=== PATIENT | male | born 1955 | race Caucasian/White ===

== ENCOUNTER → 2024-06-09 | Outpatient (BNVA) | payer MEDICARE, BC, SELFPAY | END | disposition home or self-care (01) | PROVIDERS: PCP Nurse Anesthetist, Certified Registered; Referring Provider Nurse Anesthetist, Certified Registered; Visit Provider Urology | DX: N40.1 Benign prostatic hyperplasia with lower urinary tract symptoms (principal); N13.8 Other obstructive and reflux uropathy; Z87.891 Personal history of nicotine dependence | CPT/HCPCS: 76872 ==

== ENCOUNTER → 2024-08-13 | Outpatient (CLI) | payer MEDICARE, BC, SELFPAY ==
--- NOTE | 2024-08-13 14:44 | XR_ITS ---
Examination: Abdomen AP single view Technique: AP portable supine abdomen, single view Exam date and time: August 13, 2024 1502 hours INDICATIONS: Diarrhea 3 months FINDINGS: Moderate air and stool throughout the colon No obstruction No free air No abnormal calcific densities Moderate narrowing hip joints IMPRESSION: Moderate air and stool throughout the colon
== END | disposition home or self-care (01) ==
LOC: CDIM 14:23
PROVIDERS: PCP Family Medicine; Referring Provider Specialist; Visit Provider Specialist
DX: K59.00 Constipation, unspecified (principal)
CPT/HCPCS: 74018

== ENCOUNTER → 2024-08-18 | Outpatient (BNVA) | payer MEDICARE, BC, SELFPAY | END | disposition home or self-care (01) | PROVIDERS: PCP Nurse Anesthetist, Certified Registered; Referring Provider Nurse Anesthetist, Certified Registered; Visit Provider Urology | DX: N40.1 Benign prostatic hyperplasia with lower urinary tract symptoms (principal); N39.41 Urge incontinence; N13.8 Other obstructive and reflux uropathy; K58.9 Irritable bowel syndrome, unspecified; Z85.46 Personal history of malignant neoplasm of prostate; E66.9 Obesity, unspecified; Z68.32 Body mass index [BMI] 32.0-32.9, adult; Z87.891 Personal history of nicotine dependence | CPT/HCPCS: 81003; 99212; G0463 ==

== ENCOUNTER → 2024-09-08 | Outpatient (BNVA) | payer MEDICARE, BC, SELFPAY | END | disposition home or self-care (01) | PROVIDERS: PCP Nurse Anesthetist, Certified Registered; Referring Provider Nurse Anesthetist, Certified Registered; Visit Provider Urology | DX: N35.812 Other bulbous urethral stricture, male (principal); N32.89 Other specified disorders of bladder; N40.1 Benign prostatic hyperplasia with lower urinary tract symptoms; N13.8 Other obstructive and reflux uropathy; Z87.891 Personal history of nicotine dependence | CPT/HCPCS: 52000; 81003; 96372; A4217; A4649; C1894; J1580; A9270 ==

== ENCOUNTER → 2024-11-16 | Outpatient (CLI) | payer MEDICARE, BC, SELFPAY ==
[2024-11-16 14:23] LABS: Basophils % (Auto) 0 % (0-2.5); Eosinophils # (Auto) 0.2 Thou/mm3 (0.0-0.5); Eosinophils % (Auto) 2 % (0-10); Hematocrit 46.7 % (41.0-53.0); Hemoglobin 16.3 g/dL (13.5-16.0); Immature Granulocytes % (Auto) 1 % (0-0); Immature Granulocytes Auto 0.05 Thou/mm3 (0.00-0.00); Lymphocytes # (Auto) 1.8 Thou/mm3 (1.0-4.8); Lymphocytes % (Auto) 20 % (10-50); Mean Corpuscular HGB Conc 34.9 g/dl (31.0-37.0); Mean Corpuscular Hemoglobin 34.8 pg (25.0-35.0); Mean Corpuscular Volume 100 fL (80-100); Monocytes # (Auto) 0.7 Thou/mm3 (0.0-0.8); Monocytes % (Auto) 8 % (0-12); Neutrophils # (Auto) 6.3 Thou/mm3 (1.8-7.7); Neutrophils % (Auto) 69 % (37-80); Nucleated Red Blood Cell % 0 /100 WBC (0); Platelet Count 230 Thou/mm3 (140-440); RDW Standard Deviation 47.3 fL (35.1-43.9); Red Blood Count 4.69 Miln/mm3 (4.50-5.90); White Blood Count 9.2 Thou/mm3 (3.8-10.6)
[2024-11-16 14:39] LABS: Prostate Specific Antigen 0.46 ng/mL (0-4.00)
[2024-11-16 15:55] LABS: Glucose Estimated Average 105 mg/dL (80-131); Hemoglobin A1C 5.3 % Hgb (4.8-6.0)
== END | disposition home or self-care (01) ==
PROVIDERS: PCP Internal Medicine; Referring Provider Internal Medicine; Visit Provider Internal Medicine
DX: R23.3 Spontaneous ecchymoses (principal); E78.5 Hyperlipidemia, unspecified; N40.1 Benign prostatic hyperplasia with lower urinary tract symptoms; Z79.899 Other long term (current) drug therapy; I48.91 Unspecified atrial fibrillation
CPT/HCPCS: 36415; 80053; 80061; 83036; 84153; 84443; 85025

== ENCOUNTER → 2024-11-20 | Outpatient (CLI) | payer MEDICARE, BC, SELFPAY ==
[2024-11-20 15:41] LABS: Alanine Aminotransferase 18 U/L (10-49); Albumin, Serum 4.6 gm/dL (3.4-4.8); Albumin/Globulin Ratio 1.9 (1.2-2.2); Alkaline Phosphatase 70 U/L (46-116); Anion Gap 5 (7-16); Aspartate Amino Transferase 16 U/L (0-34); BUN/Creatinine Ratio 11 Ratio (12-20); Blood Urea Nitrogen 12 mg/dL (9-23); Calcium 9.3 mg/dL (8.3-10.6); Calcium (Corrected) 9.3 mg/dL (8.5-10.1); Carbon Dioxide 27.3 mMol/L (20.0-31.0); Cardiac Risk Estimate 4.8 RATIO (4.0-6.7); Chloride 109 mMol/L (98-107); Cholesterol 182 mg/dL (132-200); Creatinine (Component) 1.1 mg/dL (0.6-1.3); Globulin 2.4 gm/dL (2.3-3.5); Glucose 97 mg/dL (74-106); HDL Cholesterol 38 mg/dL (40-60); LDL Cholesterol,Calculated 131 mg/dL (0-130); Osmolality,Calculated 280 (275-295); Potassium 4.1 mMol/L (3.4-5.1); Sodium 141 mMol/L (136-145); Thyroid Stimulating Hormone 1.64 uIU/mL (0.55-4.78); Triglycerides 64 mg/dL (30-150); eGFR > 60 See Note
== END | disposition home or self-care (01) ==
LOC: COPL 14:18
PROVIDERS: PCP Family Medicine; Referring Provider Internal Medicine; Visit Provider Internal Medicine
DX: R23.3 Spontaneous ecchymoses (principal); E78.5 Hyperlipidemia, unspecified; N40.1 Benign prostatic hyperplasia with lower urinary tract symptoms; I48.91 Unspecified atrial fibrillation; Z79.899 Other long term (current) drug therapy
CPT/HCPCS: 36415; 80053; 80061; 84443

== ENCOUNTER 2025-03-01 15:00 | Inpatient (IN) | payer MEDICARE, BC, SELFPAY ==
[2025-03-01] VITALS (8 sets, daily range): BP systolic 94–117; BP diastolic 62–85; PULSE 54–135; RESP 18–26; TEMP 36.8–38.8; O2SAT 95–98; BMI 29.8
--- NOTE | 2025-03-01 15:18 | EKG_ITS ---
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: : 1955 Requested By: Ana Hernandez Order Number: [id number] Reading MD: Ana Hernandez Measurements Intervals [place] Rate: 131 P: 90 VT: 168 QRS: 7 QRSD: 77 T: 78 QT: 374 QTc: 552 Interpretive Statements SINUS TACHYCARDIA WITH OCCASIONAL VENTRICULAR PREMATURE COMPLEXES LOW QRS VOLTAGE [QRS DEFLECTION < 0.5/1.0 mV IN LIMB/CHEST LEADS] MARKED ST ELEVATION, CONSIDER INFERIOR INJURY [MARKED ST ELEVATION W/O NORMALLY INFLECTED T-WAVE IN II/aVF] ACUTE [place] Compared to ECG 11/23/2022 09:50:53 Low QRS voltage now present ST (T wave) deviation now present Myocardial infarct finding now present Sinus rhythm no longer present /store/S0/[id number].pdf
--- NOTE | 2025-03-01 15:21 | XR_ITS ---
Examination: AP chest single view Technique one AP portable semiupright chest single view Date and time: March 01, 2025 at 1539 hours INDICATIONS: Sepsis alert today FINDINGS: Normal heart size. No pneumonia or pulmonary edema The osseous structures are intact IMPRESSION: No pneumonia or pulmonary edema
[2025-03-01] MEDS: SODIUM CHLORIDE 0.9% 1000 ML 2,328 ML 2328 ML IV (15:32)
[2025-03-01 15:41] LABS: Basophils # (Auto) 0.1 Thou/mm3 (0.0-0.2); Basophils % (Auto) 0 % (0-2.5); Eosinophils # (Auto) 0.0 Thou/mm3 (0.0-0.5); Eosinophils % (Auto) 0 % (0-10); Hematocrit 46.0 % (41.0-53.0); Hemoglobin 16.3 g/dL (13.5-16.0); Immature Granulocytes Auto 0.23 Thou/mm3 (0.00-0.00); Lymphocytes # (Auto) 0.4 Thou/mm3 (1.0-4.8); Lymphocytes % (Auto) 1 % (10-50); Mean Corpuscular HGB Conc 35.4 g/dl (31.0-37.0); Mean Corpuscular Hemoglobin 35.6 pg (25.0-35.0); Mean Corpuscular Volume 100 fL (80-100); Monocytes # (Auto) 1.8 Thou/mm3 (0.0-0.8); Monocytes % (Auto) 7 % (0-12); Neutrophils # (Auto) 22.7 Thou/mm3 (1.8-7.7); Neutrophils % (Auto) 90 % (37-80); Nucleated Red Blood Cell # 0.00 Thou/mm3 (0.00-0.00); Nucleated Red Blood Cell % 0 /100 WBC (0); Platelet Count 181 Thou/mm3 (140-440); RDW Standard Deviation 47.6 fL (35.1-43.9); Red Blood Count 4.58 Miln/mm3 (4.50-5.90); White Blood Count 25.1 Thou/mm3 (3.8-10.6)
[2025-03-01 15:42] LABS: Lactate (Lactic Acid) 4.8 mMol/L (0.4-2.0)
[2025-03-01 15:55] LABS: INR 1.1 (0.9-1.3); Partial Thromboplastin Time 30.8 Seconds (22.0-36.0); Prothrombin Time 12.3 Seconds (9.0-12.2)
[2025-03-01 15:58] LABS: B-Type Natriuretic Peptide 125 pg/mL (0-100)
[2025-03-01 16:06] LABS: Alanine Aminotransferase 17 U/L (10-49); Albumin, Serum 4.3 gm/dL (3.4-4.8); Albumin/Globulin Ratio 1.7 (1.2-2.2); Alkaline Phosphatase 69 U/L (46-116); Anion Gap 13 (7-16); Aspartate Amino Transferase 23 U/L (0-34); BUN/Creatinine Ratio 7 Ratio (12-20); Bilirubin,Total 1.4 mg/dL (0.3-1.2); Blood Urea Nitrogen 10 mg/dL (9-23); Calcium 9.5 mg/dL (8.3-10.6); Calcium (Corrected) 9.5 mg/dL (8.5-10.1); Carbon Dioxide 21.6 mMol/L (20.0-31.0); Chloride 104 mMol/L (98-107); Creatinine (Component) 1.4 mg/dL (0.6-1.3); Estimated Creatinine Clearance 60.9 mL/min (>60); Globulin 2.6 gm/dL (2.3-3.5); Glucose 145 mg/dL (74-106); Osmolality,Calculated 279 (275-295); Potassium 3.9 mMol/L (3.4-5.1); Procalcitonin 3.66 ng/ml (0.0-0.49); Sodium 139 mMol/L (136-145); Total Protein 6.9 gm/dL (5.7-8.2); eGFR 54 See Note
[2025-03-01 16:09] LABS: Troponin I 0.306 ng/mL (0.0-0.045)
[2025-03-01 16:31] LABS: Collection Type, Urine Voided
--- NOTE | 2025-03-01 16:37 | XR_ITS ---
Examination: CT brain head without contrast. 2-D sagittal coronal reconstructions Date and time of exam:February 28, 2025, 1854 hours Comparison July 05, 2023. INDICATIONS: Patient fell today with injury., Altered mental status CTDI: vol (mGy):53.3 DLP: (mGycm):1069 Technique: Multiple CT axial sections of the brain have been obtained, 5 mm slice thickness. Contrast has not been administered. 2-D sagittal, coronal reconstructions have been obtained Low dose protocols were performed. One or more of the following dose reduction techniques were used; automated exposure control, adjustment of the mA and/or KV according to patient size, use of iterative reconstruction technique. Findings: No significant ventricular enlargement. Intra-axial or extra-axial hemorrhage density is not seen. No mass effect or midline shift Basal cisterns are not remarkable. Fourth ventricle is midline. Cranial vault intact. Impression: Negative for acute hemorrhage, mass effect or midline shift
--- NOTE | 2025-03-01 16:38 | XR_ITS ---
Examination: CTA chest with intravenous contrast 2-D reconstructions 3-D reconstructions, vascular Date and time of exam: March 01, 2025, 1905 hours INDICATIONS: Patient fell today with fever and tachycardia syncope CTDI: vol (mGy) 17.45 DLP: (mGycm) 412 Technique: Multiple axial sections of the thorax have been obtained. 3 mm slice thickness, from below the hemidiaphragms to above the apices of the lungs. Mediastinal and lung density settings have been obtained. 2-D sagittal and coronal reconstructions. 3-D angiographic renderings, 3-D volume renderings, 3D post processing, vascular maximum intensity projections obtained. Contrast administered is 60 cc Isovue 300. Intravenous Low dose protocols were performed. One or more of the following dose reduction techniques were used; automated exposure control, adjustment of the mA and/or KV according to patient size, use of iterative reconstruction technique. Findings: Pulmonary artery segments are not enlarged, no pulmonary artery emboli No hemopericardium No pneumothorax pulmonary contusion or hemothorax No visualized liver or splenic lesion No pancreatic or adrenal mass Manubrium body of the sternum thoracic vertebral bodies intact Ribs appear intact No visualized liver or splenic lesion No gallstones No pancreatic mass IMPRESSION: No thoracic aortic aneurysm dilatation or dissection Negative for pulmonary artery emboli Negative for pulmonary artery hypertension No pneumothorax pneumonia or pulmonary edema
--- NOTE | 2025-03-01 16:39 | XR_ITS ---
Examination: CT abdomen with intravenous contrast CT pelvis with intravenous contrast 2-D coronal reconstructions 2-D sagittal reconstructions Date and time of exam:March 01, 2025, 1905 hours Comparison January 08, 2021 INDICATIONS: Patient fell today with injury to the abdomen, abdomen pain. CTDI: vol (mGy) 12.6 DLP: (mGycm) 811 Technique: Multiple axial sections of the abdomen and pelvis have been obtained. 64 slice high-resolution scanner used. 3 mm axial sections have been obtained, post intravenous injection 60 cc Isovue 300 2-D sagittal, coronal reconstructions obtained. Low dose protocols were performed. One or more of the following dose reduction techniques were used; automated exposure control, adjustment of the mA and/or KV according to patient size, use of iterative reconstruction technique. Findings: No liver splenic or renal laceration, no perinephric hematoma No gallstones No pancreatic or adrenal mass Abdominal aorta intact, no free blood in the abdomen Negative for pneumoperitoneum Small fat-containing umbilical hernia Urinary bladder wall thickening up to 6 mm No significant prostatomegaly No lumbar vertebral body compression fracture Advanced degenerative disc disease L2-L3. Bones of the pelvis including acetabular regions anterior rami and hips appear intact IMPRESSION: No abdominal parenchymal laceration Abdominal aorta intact, no free blood in the abdomen or pelvis Cystitis pattern Osseous structures intact
--- NOTE | 2025-03-01 16:39 | EDNOTE_ITS ---
ED Syncope RME/HPI General Chief Complaint: Arrhythmia/Palpitations Stated Complaint: AFIB Time Seen by Provider: 03/01/25 15:20 Arrival date/time: 03/01/25 15:00 Limitations: no limitations RME / HPI RME / HPI narrative: 69-year-old male who was brought in today by EMS after he had a fall in his bathroom at home. The fall was unwitnessed but his heard the fall, found him on the ground, and contacted 911. He was alert but confused when he was found. There is no witnessed seizure activity. EMS report no postictal state. Patient was tachycardic but normotensive on scene. There is question of possib le A-fib however he he was in sinus rhythm upon presentation here. There is no open wounds. Patient states he stood up, felt lightheaded and fell. Patient was found to be tachycardic and had a fever upon presentation. this triggered our sepsis alert. 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 He denies any runny nose, cough, chest pain, or shortness of breath. He has no skin changes. No abdominal pain, nausea, or vomiting. He has no dysuria. He does endorse a low backache. No skin changes. Related Data Home Medications ?Medication ?Instructions ?Recorded ?Confirmed pramipexole 0.5 mg tablet 1 mg PO QPM 11/23/22 5 tamsulosin 0.4 mg capsule 0.8 mg PO QHS 04/16/2408/18 solifenacin 5 mg tablet (Vesicare) 5 mg PO QDAY 08/18/24 Allergies Allergy/AdvReac Type Severity Reaction Status Date / Time No Known Allergies Allergy Verified 08/18/24 09:41 Review of Systems Review of Systems Systems Reviewed: All systems reviewed, normal except as documented ED Exam General Limitations: Present no limitations General appearance: Present alert and in no apparent distress Head Head exam: Present atraumatic Eye Eye exam: Present normal appearance, PERRL and EOMI ENT ENT exam: Present normal exam, normal oropharynx and mucous membranes moist Neck Neck exam: Present normal inspection, full ROM and trachea midline Chest Chest inspection: Present normal inspection and symmetric chest wall rise Respiratory Respiratory exam: Present normal lung sounds bilaterally Cardiovascular Cardiovascular exam: Present normal rhythm, tachycardia and normal heart sounds Abdominal Exam Abdominal exam: Present soft and normal bowel sounds; Absent distention, tend erness or guarding Extremities Exam Extremities exam: Present normal inspection and full ROM Back Exam Back exam: Present normal inspection and full ROM Neurological Exam Neurological exam: Present alert and oriented X3 Psychiatric Psychiatric exam: Present normal affect and normal mood Skin Skin exam: Present warm, dry, intact and normal color Course Quality Measures none Orders Category Date Time Status Bedside Blood Glucose NOW Care 03/01/25 15:21 Active COVID-19 Screening Questionnaire NOW Care 03/01/25 20:[address] Screening NOW Care 03/01/25 16:[address] Screening NOW Care 03/01/25 16:[address] Screening X1 Care 03/01/25 16:38 Active Professor Of Radiology Q4H START 00 Care 03/01/25 15:21 Active Decision to Admit X1 Care 03/01/25 20:01 Completed EKG (ED ONLY) *Do not use* NOW Care 03/01/25 15:18 Completed EKG (ED ONLY) *Do not use* NOW Care 03/01/25 16:24 Completed Insert IV NOW Care 03/01/25 15:21 Active Strict Intake and Output Routine Care 03/01/25 15:[address] abdomen pelvis w con Stat Exams 03/01/25 16:[address] angio chest Stat Exams 03/01/25 16:[address] head/brain wo con Stat Exams 03/01/25 16:37 Completed EKG (ED Only) Stat Exams 03/01/25 15:18 Draft EKG (ED Only) Stat Exams 03/01/25 16:24 Ordered XR chest 1V SEPSIS PROTOCOL Stat Exams 03/01/25 15:21 Completed BNP [B-Type Natriuretic Peptide] Stat Lab 03/01/25 15:28 Completed Blood Culture (Lab) Stat Lab 03/01/25 15:34 Received CBC Stat Lab 03/01/25 15:28 Completed CRP [C-Reactive Protein] Stat Lab 03/01/25 17:25 Completed Comprehensive Metabolic Panel Stat Lab 03/01/25 15:28 Completed Lactate (Lactic Acid) Stat Lab 03/01/25 15:28 Completed Lactic Acid, 3 HR Stat Lab 03/01/25 18:48 Completed Magnesium Stat Lab 03/01/25 20:18 Completed Partial Thromboplastin Time Stat Lab 03/01/25 15:28 Completed Phosphorous Stat Lab 03/01/25 20:18 Completed Procalcitonin Stat Lab 03/01/25 15:28 Completed Prothrombin Time with INR Stat Lab 03/01/25 15:28 Completed Sed Rate (ESR) Stat Lab 03/01/25 17:25 Completed Troponin I Stat Lab 03/01/25 15:28 Completed Troponin I Stat Lab 03/01/25 17:25 Completed Troponin I Stat Lab 03/01/25 20:18 Completed Urinalysis Stat Lab 03/01/25 16:23 Completed Urine Culture Stat Lab 03/01/25 16:23 Received Acetaminophen Tab [Tylenol ES Tab] Med 03/01/25 15:45 Discontinued 1,000 mg PO X1 ONE Sodium Chloride 0.9% 1000 ml [Ns] 2,328 ml Med 03/01/25 15:21 Discontinued IV 2,328 mls/hr cefTRIAXone [Rocephin] 2 gm Med 03/01/25 15:22 Discontinued SODIUM CHLORIDE 0.9% (Popper) [Ns 0.9% (P)] 50 ml IV X1 Vital Signs Vital signs: Vital Signs Temperature 100.6 F H 03/01/25 15:02 Pulse Rate 135 H 03/01/25 15:02 Respiratory Rate 20 03/01/25 15:02 Blood Pressure 117/76 03/01/25 15:02 Pulse Oximetry (%) 96 03/01/25 15:02 Oxygen Delivery Method Room Air 03/01/25 15:02 Syncope MDM Narrative MDM Narrative:: 69-year-old male who was brought in today by EMS after he had a fall in his bathroom at home. The fall was unwitnessed but his heard the fall, found him on the ground, and contacted 911. He was alert but confused when he was found. There is no witnessed seizure activity. There is no open wounds. Patient states he stood up, felt lightheaded and fell. Patient was found to be tachycardic and had a fever upon presentation. This triggered our sepsis alert. 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 He denies any runny nose, cough, chest pain, or shortness of breath. He has no skin changes. No abdominal pain, nausea, or vomiting. He has no dysuria. He does endorse a low backache. No skin changes. On exam, patient is diaphoretic, tachycardic and febrile. Upon arrival he triggered our sepsis alert and interventions were initiated. Workup reveals a leukocytosis of 20 5.1K, hemoglobin 16.3, hematocrit is 46. Metabolic panel reveals a creatinine of 1.4, glucose is 145, T. bili is 1.4. AST, ALT, and alk phos are unremarkable. Patient's CRP is 4.4. Procalcitonin is 3.66. BNP is 125 and troponin is elevated at 0.36 and is trended. Second troponin 0.354. A third troponin is pending. UA reveals 19 leukocytes. EKG revealed sinus tachycardia and was reviewed with Dr. Pride, the attending ER physician. CT of the head was obtained and is unremarkable. CT of the chest was negative for any pulmonary emboli or pneumonia. CT of the abdomen pelvis is unremarkable with exception of cystitis pattern. Patient was given fluid boluses here in addition of ceftriaxone. His vital signs have been normalized. Patient admitted from hospital mission, further therapies, and consideration for further workup for syncope. 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 How is presenting disease/condition affected by chronic disease/condition?: uneffected by Evaluation data The following diagnostics were reviewed and interpreted by me:: lab results (Leukocytosis with elevated inflammatory markers including troponin), radiology exam(s) (CT of the head, chest, abdomen, pelvis are unremarkable with the exception of cystitis pattern) and EKG tracing(s) (Sinus tachycardia with nonspecific ST changes, no dynamic T waves.) Lab and/or radiology exams considered but not ordered:: n/a Interpretation Summary: Sepsis, leukocytosis, UTI, elevated troponin Medications / Prescriptions Medications or Prescriptions considered but not ordered:: n/a Medication administrations:: Medication Administration History Acetaminophen (Acetaminophen 325 Mg Tablet) 650 mg PO Q6H PRN PRN Reason: PAIN SCALE 1-3 (mild Stop: 03/31/25 20:32 Heparin Sodium (Porcine) (Heparin Sod Inj 5000 Unit/Ml Vial) 5,000 unit SC Q12HR CHANTEL Stop: 03/15/25 20:59 Last Admin: 03/01/25 22:23 Dose: 5,000 unit Documented By: CCT Co-signed By: CAM Ceftriaxone Sodium/Dextrose (Rocephin/D5w 1gm Iv Premix) 1 gm in 50 mls @ 100 mls/hr IV QDAY [facility] Stop: 03/09/25 08:59 Ondansetron HCl (Ondansetron Inj 2 Mg/Ml Inj 2 Ml) 4 mg IVP Q6H PRN; Protocol PRN Reason: NAUSEA OR VOMITING Stop: 03/31/25 20:32 Sennosides (Senna Tablet) 1 tab PO QDAY PRN; Protocol PRN Reason: constipation Stop: 03/31/25 20:32 Discontinued Medications Acetaminophen (Acetaminophen 500 Mg Tablet) 1,000 mg PO X1 ONE Stop: 03/01/25 15:46 Last Admin: 03/01/25 18:06 Dose: 1,000 mg Documented By: LIANNE Sodium Chloride (Ns) 2,328 mls @ 2,328 mls/hr 30 ml/kg infuse over 60 min (2328 ml) IV .Q1H ONE Stop: 03/01/25 16:20 Last Infusion: 03/01/25 16:35 Dose: Infused Documented By: Admin: 03/01/25 15:32 Dose: 2,328 mls/hr Documented By: ADIN Ceftriaxone Sodium 2 gm/ (Sodium Chloride) 50 mls @ 100 mls/hr IV X1 ONE Stop: 03/01/25 15:51 Last Infusion: 03/01/25 18:45 Dose: Infused Documented By: Admin: 03/01/25 18:08 Dose: 100 mls/hr Documented By: LIANNE See above Consultations Consultation(s) initiated? (list below): No Diagnosis Syncope Differential Diagnosis: syncope due to orthostatic hypotension, vasovagal syncope and pulmonary embolism Most likely diagnosis given after review of the tests above:: She has sepsis, UTI. Admission Indicated Admission indicated?: indicated Admission Request Was there a request for admission?: Yes Admission Attestation Admission request attestation: Discussed case with [] from Hospitalist service regarding admission. Discussed patients ED course, exam findings, labs, and radiology results. The Hospitalist [agrees,declines] to accept the patient for admission. Disposition Plan Disposition Plan: Admit Critical Care Time Critical Care Time Critical Care Time: Yes Total Critical Care Time (min.): 55 Attestation: The high probability of sudden, clinically significant deterioration in the patient's condition required the highest level of my preparedness to intervene urgently. The services I provided to this patient were to treat and/or prevent clinically significant deterioration. Services included the following: chart data review, reviewing nursing notes and/or old charts, documentation time, hr consultant collaboration regarding findings and treatment options, medication orders and management, direct patient care, vital sign assessments and ordering, interpreting and reviewing diagnostic studies and lab tests. Aggregate critical care time includes only time during which I was engaged in work directly related to the patient's care, as described above, whether at bedside or elsewhere in the Emergency Department. It did not include time spent performing other reported procedures or the services of residents, students, nurses or physician assistants. Discharge Plan Plan Patient Disposition: Admit Acute Care w/in Hospital Patient condition on transfer: Stable Problem List Clinical Impression: Sepsis, Acute UTI, Syncope, Elevated troponin
[2025-03-01 17:51] LABS: Bilirubin,Urine Negative (Negative); Blood,Urine 1+ (Negative); Clarity,Urine Clear (Clear/Hazy); Color,Urine Lt-Yellow (Lt Yel-Yel); Glucose, Urine Negative (Negative); Ketones,Urine Negative (Negative); Leukocyte Esterase,Urine Positive (Negative); Nitrite,Urine Negative (Negative); PH,Urine 6.0 (5.0-7.0); Protein,Urine Negative (Neg - Trace); RBC,Urine 2 /hpf (0-3); Specific Gravity,Urine 1.007 (1.001-1.035); Squamous Epithelial Cell,Urine < 1 /hpf (0-5); Urobilinogen,Urine Negative mg/dL (0.0-1.0); WBC,Urine 19 /hpf (0-5)
[2025-03-01 18:02] LABS: C-Reactive Protein 4.4 mg/dL (0.0-0.9)
[2025-03-01 18:03] LABS: Troponin I 0.354 ng/mL (0.0-0.045)
[2025-03-01] MEDS: ACETAMINOPHEN 500 MG TABLET 1000 MG PO (18:06)
[2025-03-01] MEDS: cefTRIAXone 2 GM in SODIUM CHLORIDE 0.9% (Popper) 50 ML IV (18:08)
[2025-03-01 18:17] LABS: Sed Rate (ESR) 8 mm/hr (0-20)
[2025-03-01 18:38] LABS: Reflex Lactate? Y
[2025-03-01 19:08] LABS: Lactic Acid, 3 HR 2.0 mMol/L (0.4-2.0)
--- NOTE | 2025-03-01 20:36 | ECHO_ITS ---
Transthoracic Echo Report Ht (in): 72 Wt (lb): 220 Exam Location: Echo Lab Status: Emergency Boot Maker: Mere Tanner Indications: Procedure Performed: BP: 128 / 91 HR: 96 Technical Quality: Technically difficult study MEASUREMENTS (Male / Female) Normal Values 2D ECHO LV Diastolic Diameter PLAX 4.5 cm 4.2 - 5.9 / 3.9 - 5.3 cm LV Systolic Diameter PLAX 2.6 cm IVS Diastolic Thickness 0.9 cm 0.6 - 1.0 / 0.6 - 0.9 cm LVPW Diastolic Thickness 0.8 cm 0.6 - 1.0 / 0.6 - 0.9 cm LV Relative Wall Thickness 0.4 LVOT Diameter 2.0 cm Aortic Root Diameter 3.0 cm LA Systolic Diameter LX 2.5 cm 3.0 - 4.0 / 2.7 - 3.8 cm LV Ejection Fraction MOD BP 45.4 % >= 55 % LV Cardiac Index MOD BP 2068.5 cm?/min?m? LV Ejection Fraction MOD 4C 46.6 % LV Cardiac Index MOD 4C 2241.6 cm?/min?m? LV Ejection Fraction 4C AL 46.8 % LV Cardiac Index 4C AL 2354.8 cm?/min?m? LV Ejection Fraction MOD 2C 47.8 % LV Cardiac Index MOD 2C 2039.0 cm?/min?m? LV Ejection Fraction 2C AL 49.3 % LV Cardiac Index 2C AL 2152.4 cm?/min?m? LA Volume Index 19.2 cm?/m? 16 - 28 cm?/m? M-MODE Aortic Root Diameter MM 2.5 cm LA Systolic Diameter MM 2.6 cm LA Ao Ratio MM 1.0 AV Cusp Separation MM 2.0 cm DOPPLER AV Peak Velocity 90.4 cm/s AV Peak Gradient 3.3 mmHg AV Mean Gradient 2.0 mmHg AV Velocity Time Integral 19.9 cm LVOT Peak Velocity 75.4 cm/s LVOT Peak Gradient 2.3 mmHg LVOT Velocity Time Integral 16.7 cm LVOT Cardiac Index 2214.8 cm?/min?m? AV Area Cont Eq vti 2.6 cm? AV Area Cont Eq pk 2.6 cm? MV Area PHT 5.5 cm? Mitral E Point Velocity 39.3 cm/s Mitral A Point Velocity 59.2 cm/s Mitral E to A Ratio 0.7 LV E' Lateral Velocity 8.3 cm/s Mitral E to LV E' Lateral Ratio 4.8 LV E' Septal Velocity 9.4 cm/s Mitral E to LV E' Septal Ratio 4.2 PV Peak Velocity 89.6 cm/s PV Peak Gradient 3.2 mmHg FINDINGS Left Ventricle Normal left ventricular size, wall thickness, systolic function with no obvious regional wall motion abnormalities. The ejection fraction is visually estimated at 55-60 %. There is grade I diastolic dysfunction of the left ventricle (impaired relaxation pattern). Right Ventricle The right ventricular size is moderately increased with normal systolic function. Left Atrium The left atrium is normal by two-dimensional, color flow and Doppler imaging with no structural abnormalities, no thrombus formation present. Right Atrium The right atrium is normal by two-dimensional imaging, color flow and Doppler imaging with no structural abnormalities, no thrombus formation present. Atrial Septum The interatrial septum appears normal with no evidence of a shunt. Aorta The aorta is normal by two-dimensional, color flow and Doppler interrogation. Mitral Valve The mitral valve is normal by two-dimensional, color flow and Doppler interrogation. Trace mitral regurgitation. Aortic Valve The aortic valve is trileaflet and normal by two-dimensional, color flow and Doppler interrogation. There is no significant aortic valve regurgitation. Tricuspid Valve The tricuspid valve is normal by two-dimensional, color flow and Doppler interrogation. There is no significant tricuspid valve regurgitation. Pulmonic Valve The pulmonic valve is not well visualized. There is no significant pulmonic valve regurgitation. Vessels Inferior vena cava not well visualized. Pericardium The pericardium is normal by two-dimensional imaging. There is no significant pericardial effusion. CONCLUSIONS Indication: Hx of heart arrhythmia, no stent Normal LV size and wall thickness. Estimated EF at 55-60 %. Grade I diastolic dysfunction. The RV size is moderately increased with normal systolic function. Trace MR. IVC not well visualized. Zana García (Electronically Signed) Final Date: 03 March 2025 00:29
[2025-03-01 21:09] LABS: Magnesium 1.5 mg/dL (1.6-2.6); Phosphorous 1.9 mg/dL (2.4-5.1)
--- NOTE | 2025-03-01 21:11 | ESHP_ITS ---
<Statement entered by Zack Mcclure MD - 03/03/25 07:37> I have discussed and was present for the essential components of the history, physical examination, diagnosis, and treatment plan with the resident. I agree with the patient's care as documented by the resident and amended herein by me. Zack Mcclure MD FACP. Documentation for date of: 03/01/25 HPI History of Present Illness History of present illness: Cole Pelaez is a 69-year-old male with a PMH of GBS, unspecified cardiac arrhythmia, and BPH who presents today with syncopal episode and possible ground-level fall. According to patient, his heard him fall down near the entrance of home bathroom at around 11 to 11:30 AM this morning. He recalls feeling a sense of general malaise and weakness as well as possible cold sweats prior to the syncopal episode but did not remember the actual episode itself. Patient does not know how long the episode lasted. He endorses having a similar prior episode before in the setting of stress. According to ED note, he also seems to endorses lightheadedness that occurs when he stands up. He denies any recent travel history or sick contacts. He denies having any current pain. In the ED, vitals showed: BP 117/76 HR 135 RR 20 Temp 100.6 SpO2 96% on room air ED Course: CBC showed leukocytosis (WBC 25.1) w/ neutrophilic predominance but was otherwise unremarkable. Coagulation panel WNL. CMP showed elevated creatinine 1.4 (baseline 1.1), normal BUN, reduced eGFR 54 (baseline >60), critically high lactic acid 4.8 (downtrended to 2.0), low magnesium and phosphorus, critically high troponin (0.306->0.354->0.442), high CRP, high BNP, and high procalcitonin. UA showed some pyuria, slight hematuria, and positive LE. Imaging: EKG showed sinus tachycardia w/ marked ST elevation in the distribution of inferior NC, occasional PVCs and a prolonged QTc 552. CXR, head CT, and chest CTA were all unremarkable. CTAP was notable for a cystitis pattern but was otherwise negative. In the ED, patient was given 2 L NS, tylenol, and ceftriaxone. Patient was admitted for the work-up and management of syncopal episode, sepsis r/o 2/2 possible UTI, DEANA, and elevated troponin. Review of Systems Review of Systems Narrative Review of Systems: General: Endorses low grade fever and general malaise. Endorses cold sweats antecedent to syncopal episode. Denies chills HEENT: Denies congestion or sore throat Heart: Denies chest pain or palpitations Lungs: Denies shortness of breath or cough Abdomen: Denies abdominal pain, nausea, vomiting, constipation, diarrhea, or blood in stool Genitourinary: Endorses urinary urgency. Denies frequency, dysuria, or hematuria Neurology: Endorses generalized weakness. Endorses amnesia of syncopal event. Endorses orthostatic hypotension symptoms. Denies any changes in vision or difficulty speaking Review of systems otherwise negative except what is mentioned above. Past Medical History Past Medical History NEUROLOGIC: Positive Neurological Disorders (RESTLESS LEG SYNDROME) and Guillain-[place] Syndrome (AT AGE 18); Negative Seizures CARDIAC: Negative Cardiac Disorders or Congestive Heart Failure RESPIRATORY: Negative Chronic Obstructive Pulmonary Disease (COPD) or Asthma GASTROINTESTINAL: Positive Gastrointestinal Disorders (RECTAL BLEEDING) GENITOURINARY: Positive Genitourinary Disorders (OVERACTIVE BLADDER) and Benign Prostatic Hyperplasia; Negative Renal Disease REPRODUCTIVE: Positive Genital Herpes (years ago) MUSCULOSKELETAL: Positive Musculoskeletal Disorders and Fractures ENT: Positive Cataracts (carlitos) ENDOCRINE: Negative Endocrine Disorders, Diabetes Mellitus Type 1 or Diabetes Mellitus Type 2 HEMATOLOGIC: Negative Blood Disorders or Sickle Cell Disease OTHER HISTORY: Positive Hospitalization (guillian barre syndrome), Autoimmune Disease (restless leg syndrome, guillian barre syndrome), Chicken Pox, Measles and Mumps; Negative Blood Transfusions, Blood Transfusion Reaction, Anesthesia Reactions, MRSA or Cancer Family History FAMILY HISTORY: Positive Family Cancer and Family Surgery; Negative Family Psychiatric Problems, Family Respiratory Disorders, Family Cardiac Disorders, Family Gastrointestinal Problems or Family Anesthesia Reaction Social History SMOKING STATUS: Never smoker ALCOHOL LAST INTAKE: Days (ago) Past Medical History Comments PMH COMMENT: PMH: GBS, unspecified cardiac arrhythmia, BPH PSH: hernia repair (age 2), muscle biopsy (age 10-11 at [facility]), appendectomy Medications: FloMax Allergies: none FH: prostate cancer in dad SH: lives in a house in [place] with , drank an average of 1-2 shots of alcohol (usually whiskey) from age 18-current, smoked an average of 4 cigarettes per day from age [age], current marijuana user and started at age 18 Exam Vital Signs Temp Pulse Resp BP Pulse Ox O2 Del Method 98.4 F 76 19 111/81 97 Room Air 03/01/25 20:06 03/01/25 20:06 03/01/25 20:06 03/01/25 20:06 03/01/25 20:06 03/01/25 20:06 Narrative Exam Physical Exam: General: Alert, no acute distress. Skin: Warm, dry, intact, no obvious rash. Head: Normocephalic, atraumatic. Eye: Normal conjunctiva, PERRL. Throat: Oral mucosa moist. No obvious lesions in oropharynx. Cardiovascular: Tachycardic rate and normal rhythm, no murmur, +S1/S2. Respiratory: Tachypneic. Lungs are clear to auscultation, no crackles, no wheezing. Gastrointestinal: Soft, nontender, non-distended. No guarding or rebound tenderness. Extremities: No edema, no cyanosis, no clubbing. 2+ radial pulse bilaterally, 2+ posterior tibial pulse bilaterally. Neuro: No focal deficits observed. Conversant, moving all extremities. No overt cerebellar signs/incoordination. Psychiatric: Cooperative, appropriate affect. Results: Labs 03/02/25 04:49 03/01/25 15:28 Labs: Short CBC 03/01/25 Range/Units 15: WBC 25.1 H (3.8-10.6) Thou/mm3 Hgb 16.3 H (13.5-16.0) g/dL Hct 46.0 (41.0-53.0) % Plt Count 181 (140-440) Thou/mm3 BMP 03/01/25 15:28 Sodium 139 Potassium 3.9 Chloride 104 Carbon Dioxide 21.6 BUN 10 Creatinine 1.4 H Glucose 145 H Calcium 9.5 Cardiac Enzymes 03/01/25 03/01/25 Range/Units 15: 17: Troponin I 0.306 H* 0.354 H* (0.0-0.045) ng/mL Liver Function 03/01/25 Range/Units 15:28 Total Bilirubin 1.4 H (0.3-1.2) mg/dL AST 23 (0-34) U/L ALT 17 (10-49) U/L Alkaline Phosphatase 69 (46-116) U/L Albumin 4.3 (3.4-4.8) gm/dL Urine 03/01/25 Range/Units 16:23 Urine Color Lt-Yellow (Lt Yel-Yel) Urine Clarity Clear (Clear/Hazy) Urine pH 6.0 (5.0-7.0) Ur Specific [place] 1.007 (1.001-1.035) Urine Protein Negative (Neg - Trace) Urine Glucose (UA) Negative (Negative) Quality Measures Quality Measures VTE prophylaxis (heparin) Advance care planning discussed with:: patient Medications Home Medications and Allergies Home Medications ?Medication ?Instructions ?Recorded ?Confirmed ?Type pramipexole 0.5 mg tablet 1 mg PO QPM 11/23/22 5 History tamsulosin 0.4 mg capsule 0.4 mg PO BID 04/16/2403/02 History solifenacin 5 mg tablet (Vesicare) 5 mg PO QDAY 03/02/25 History dicyclomine 10 mg capsule 10 mg PO BID 03/02/25 History Allergies Allergy/AdvReac Type Severity Reaction Status Date / Time No Known Allergies Allergy Verified 08/18/24 09:41 Visit Medications Acetaminophen (Acetaminophen 325 Mg Tablet) 650 mg PO Q6H PRN PRN Reason: PAIN SCALE 1-3 (mild Stop: 03/31/25 20:32 Heparin Sodium (Porcine) (Heparin Sod Inj 5000 Unit/Ml Vial) 5,000 unit SC Q12HR CHANTEL Stop: 03/15/25 20:59 Ceftriaxone Sodium/Dextrose (Rocephin/D5w 1gm Iv Premix) 1 gm in 50 mls @ 100 mls/hr IV QDAY CHANTEL Stop: 03/09/25 08:59 Ondansetron HCl (Ondansetron Inj 2 Mg/Ml Inj 2 Ml) 4 mg IVP Q6H PRN; Protocol PRN Reason: NAUSEA OR VOMITING Stop: 03/31/25 20:32 Sennosides (Senna Tablet) 1 tab PO QDAY PRN; Protocol PRN Reason: constipation Stop: 03/31/25 20:32 Discontinued Medications Acetaminophen (Acetaminophen 500 Mg Tablet) 1,000 mg PO X1 ONE Stop: 03/01/25 15:46 Last Admin: 03/01/25 18:06 Dose: 1,000 mg Sodium Chloride (Ns) 2,328 mls @ 2,328 mls/hr 30 ml/kg infuse over 60 min (2328 ml) IV .Q1H ONE Stop: 03/01/25 16:20 Last Infusion: 03/01/25 16:35 Dose: Infused Ceftriaxone Sodium 2 gm/ (Sodium Chloride) 50 mls @ 100 mls/hr IV X1 ONE Stop: 03/01/25 15:51 Last Infusion: 03/01/25 18:45 Dose: Infused Assessment & Plan Assessment Cole Pelaez is a 69-year-old male with a PMH of GBS and BPH who presents today with syncopal episode and possible ground-level fall. Patient was admitted for the work-up and management of syncopal episode, sepsis r/o 2/2 unknown source of infection, DEANA, and elevated troponin. #Syncope #Hx of unspecified cardiac arrhythmia #Cardiogenic vs. reflex vs. orthostatic etiology Initial presentation: syncopal episode w/ preceding cold sweats but w/o post- ictal state or focal neurological deficits in the setting of critically elevated troponins (initially 0.306 @ 15:28, 03/01/25, uptrending), lactic acidosis (initially 4.8, now resolved), tachycardia, low-grade fever, leukocytosis, hypophosphatemia and hypomagnesemia Has had 1 prior episode also w/ antecedent cold sweats that occurred in a setting where he felt stressed Current thought is that syncopal episode is most likely 2/2 orthostatic hypotension (patient endorsed lightheadedness upon standing up) that has been brought about by acute illness and septic picture Due to patient's self-reported history of unspecified cardiac arrhythmia, abnormal EKG w/ apparent ST elevation, elevated troponin (latest 0.442 @ 20:18, 03/01/25), and prolonged QTc (552), there is concern for cardiogenic syncope which warrants cardiovascular workup Differential Dx: vasovagal syncope (diaphoretic prodrome present) Patient was not a robust historian of exact details surrounding syncopal episode, may warrant collection of collateral information from witness () Diagnostic Inquiry -EKG -Echocardiogram -environmental monitoring technician q4HR -Orthostatic vitals Treatment Plan -Neuro check q4HR #Sepsis r/o #Leukocytosis Patient meets SIRS criteria (3/4) by the following: Temperature above 100.4 or below 98.6 (100.6), HR>90 (135), WBC above 12 or below 4 (25.1) + possible but unlikely source of infection (possible UTI but not convincing nidus) w/ end organ damage (DEANA, altered mentation/syncope) Evidence for source of infection is finding of high WBC 19/hpf and positive LE on UA as well as urinary bladder wall thickening up to 6 mm on CTAP (suggestive of cystitis), but unlikely to be the true source of sepsis qSOFA rating predicting high-risk mortality if 2 or more of the following criteria met: SBP 100 or less, RR 22 or more, GCS less than 15 (current score: 0) In the context of fluid resuscitation, patient is s/p 2.3 L of IV NS fluid Diagnostic Inquiry -Monitor CBC, CMP -BCx, UCx Treatment Plan -IV cefepime -IV vancomycin #DEANA, likely prerenal despite BUN/creatinine ratio 7 #likely 2/2 volume depletion from sepsis Creatinine 1.4 (baseline: 1.1), eGFR 54 (baseline: >60) Current DEANA etiology is suspected to be prerenal azotemia In the context of fluid resuscitation, patient is s/p 2.3 L of IV NS fluid Diagnostic Inquiry -Strict I's & O's Treatment Plan -IV fluids -Monitor renal panel #Elevated troponins #Demand ischemia vs. acute NC (likely inferior) Patient's lack of acute signs of chest pain or shortness of breath make demand ischemia a more likely underlying cause of the elevated troponins than acute NC (even though EKG did show ST elevations) The demand ischemia itself could likely be 2/2 patient's current infection and possible sepsis-related tachycardia Diagnostic Inquiry -EKG -Echocardiogram -environmental monitoring technician q4HR -Consider cardio consult Treatment Plan -Trending troponin #Lactic acidosis (resolved) Initial lactic acid of 4.8 that downtrended to 2.0 Thought to have been 2/2 sepsis, UTI, and DEANA #Chronic medical problems #Guillain-Chapin syndrome #Alcohol use disorder Patient has drank an average of 1-2 shots/day of whiskey for 51 years No overt signs of alcohol withdrawal Treatment Plan -On [facility] protocol Hospital Management: Disposition: undergoing work-up and management of syncopal episode, sepsis r/o 2/2 possible UTI, DEANA, and elevated troponin Diet: cardiac GI Prophylaxis: none Bowel Prophylaxis: senna DVT Prophylaxis: heparin CODE STATUS: Full Code I have examined the patient and conferred with my attending, Dr. Mcclure , and my senior resident, Dr. Wei, regarding them. Tramaine Garcia, DO PGY-1 Internal Medicine
[2025-03-01 21:13] LABS: Troponin I 0.442 ng/mL (0.0-0.045)
[2025-03-01] MEDS: HEPARIN SOD INJ 5000 UNIT/ML VIAL SC (22:23)
--- NOTE | 2025-03-01 22:57 | PC.NURSE ---
Report given [facility]
--- NOTE | 2025-03-01 23:33 | PC.NURSE ---
Received patient from ER via gurney,alert and oriented x3 and with generalized slight weakness.Bed locked in lowest position.Bedside table and call light within reach.Instructed to call when needed assistance.
[2025-03-02] VITALS (8 sets, daily range): BP systolic 96–132; BP diastolic 69–99; PULSE 87–105; RESP 18–23; TEMP 36.2–36.9; O2SAT 96–98
[2025-03-02] MEDS: Magnesium Sulfate 4 GM Ivpb 4 GM/50 ML BAG IV (04:40)
[2025-03-02 05:33] LABS: Basophils # (Auto) 0.0 Thou/mm3 (0.0-0.2); Basophils % (Auto) 0 % (0-2.5); Eosinophils # (Auto) 0.0 Thou/mm3 (0.0-0.5); Eosinophils % (Auto) 0 % (0-10); Hematocrit 44.9 % (41.0-53.0); Hemoglobin 15.8 g/dL (13.5-16.0); Immature Granulocytes Auto 0.09 Thou/mm3 (0.00-0.00); Lymphocytes # (Auto) 0.9 Thou/mm3 (1.0-4.8); Lymphocytes % (Auto) 5 % (10-50); Mean Corpuscular HGB Conc 35.2 g/dl (31.0-37.0); Mean Corpuscular Hemoglobin 35.5 pg (25.0-35.0); Mean Corpuscular Volume 101 fL (80-100); Monocytes # (Auto) 1.3 Thou/mm3 (0.0-0.8); Monocytes % (Auto) 7 % (0-12); Neutrophils # (Auto) 15.6 Thou/mm3 (1.8-7.7); Neutrophils % (Auto) 87 % (37-80); Nucleated Red Blood Cell # 0.00 Thou/mm3 (0.00-0.00); Nucleated Red Blood Cell % 0 /100 WBC (0); Platelet Count 167 Thou/mm3 (140-440); RDW Standard Deviation 47.9 fL (35.1-43.9); Red Blood Count 4.45 Miln/mm3 (4.50-5.90); White Blood Count 17.9 Thou/mm3 (3.8-10.6)
[2025-03-02 06:12] LABS: Alanine Aminotransferase 30 U/L (10-49); Albumin, Serum 4.1 gm/dL (3.4-4.8); Albumin/Globulin Ratio 1.6 (1.2-2.2); Alkaline Phosphatase 63 U/L (46-116); Anion Gap 10 (7-16); Aspartate Amino Transferase 95 U/L (0-34); BUN/Creatinine Ratio 11 Ratio (12-20); Bilirubin,Total 1.0 mg/dL (0.3-1.2); Blood Urea Nitrogen 11 mg/dL (9-23); Calcium 9.1 mg/dL (8.3-10.6); Calcium (Corrected) 9.1 mg/dL (8.5-10.1); Carbon Dioxide 24.8 mMol/L (20.0-31.0); Chloride 106 mMol/L (98-107); Creatinine (Component) 1.0 mg/dL (0.6-1.3); Estimated Creatinine Clearance 86.2 mL/min (>60); Globulin 2.5 gm/dL (2.3-3.5); Glucose 114 mg/dL (74-106); Osmolality,Calculated 281 (275-295); Potassium 4.4 mMol/L (3.4-5.1); Sodium 141 mMol/L (136-145); Total Protein 6.6 gm/dL (5.7-8.2); eGFR > 60 See Note
[2025-03-02] MEDS: NAPH,KPH MBDB 1 PACKET (1.5 GM) PO (06:13)
[2025-03-02 06:21] LABS: Troponin I 0.409 ng/mL (0.0-0.045)
[2025-03-02] MEDS: ONDANSETRON INJ 2 MG/ML INJ 2 ML 4 MG IVP (08:11)
[2025-03-02] MEDS: cefTRIAXone/D5w 1gm IV premix 1 GM/50 ML BAG IV (08:47)
[2025-03-02] MEDS: HEPARIN SOD INJ 5000 UNIT/ML VIAL SC ×2 (08:48→20:26)
--- NOTE | 2025-03-02 10:13 | ESPR_ITS ---
<Statement entered by Mckayla Ford MD - 03/02/25 15:46> I have reviewed the note and agree with the resident's assessment & plan with exceptions as below. I have personally reviewed labs, imaging, home meds/prior records, examined the patient, formulated and discussed management plan with the IM team. Pt examined at bedside today. Pt reports that he has had episodes of syncope in the past. He has seen Dr. Ricketts before in the past but has not done so in several years. He said that he has had a normal cardiac cath before. He does not know if he has orthostatic hypotension but he says that he has noticed feeling weak when getting up quickly at times. Will follow up with orthostatic vitals, echocardiogram and will consider consult to cardiology. Working DDx for syncope likely related to vasovagal and orthostatic hypotension at this time. Repeat hematology and chemistry in AM. Mckayla Ford, PGY-2 Internal Medicine Documentation for date of: 03/02/25 Subjective Subjective Interval history: Patient seen at bedside. No acute overnight events. The patient states has a history of recurrent syncopal episodes, for which he previously saw Dr. Ricketts several years ago. He reports a normal cardiac catheterization in the past. While he is unsure if he has orthostatic hypotension, he describes subjective weakness when changing positions rapidly, particularly upon standing up. Exam Vital Signs Temp Pulse Resp BP Pulse Ox O2 Del Method 97.4 F 97 20 119/78 97 Room Air 03/02/25 07:52 03/02/25 07:52 03/02/25 07:52 03/02/25 07:52 03/02/25 07:52 03/02/25 07:52 Narrative Exam General: Alert, no acute distress. Skin: Warm, dry, intact, no obvious rash. Head: Normocephalic, atraumatic. Eye: Normal conjunctiva, PERRL. Throat: Oral mucosa moist. No obvious lesions in oropharynx. Cardiovascular: S1+S2. RRR. no murmur. Respiratory: Tachypneic. Lungs are clear to auscultation, no crackles, no wheezing. Gastrointestinal: Soft, nontender, distendetion from obesity. No guarding or rebound tenderness. Extremities: No edema, no cyanosis, no clubbing. 2+ radial pulse bilaterally, 2+ posterior tibial pulse bilaterally. Neuro: No focal deficits observed. Conversant, moving all extremities. No overt cerebellar signs/incoordination. Psychiatric: Cooperative, appropriate affect. Objective Labs 03/03/25 04:25 03/03/25 04:25 Labs: Laboratory Results - last 24 hr 03/01/25 03/01/25 03/01/25 15:28 16:23 17:25 WBC 25.1 H RBC 4.58 Hgb 16.3 H Hct 46.0 MCV 100 MCH 35.6 H MCHC 35.4 RDW Std Deviation 47.6 H Plt Count 181 Neut % (Auto) 90 H Lymph % (Auto) 1 L [place] % (Auto) 7 Eos % (Auto) 0 Baso % (Auto) 0 Neut # (Auto) 22.7 H Lymph # (Auto) 0.4 L [place] # (Auto) 1.8 H Eos # (Auto) 0.0 Baso # (Auto) 0.1 Immature Gran # (Auto) 0.23 H Absolute Nucleated RBC 0.00 Immature Gran % 1 H Nucleated RBC % 0 ESR 8 PT 12.3 H INR 1.1 APTT 30.8 Sodium 139 Potassium 3.9 Chloride 104 Carbon Dioxide 21.6 Anion Gap 13 BUN 10 Creatinine 1.4 H Estim Creat Clear Calc 60.9 L eGFR 54 L BUN/Creatinine Ratio 7 L Glucose 145 H Calculated Osmolality 279 Lactic Acid 4.8 H* Calcium 9.5 Corrected Calcium 9.5 Phosphorus Magnesium Total Bilirubin 1.4 H AST 23 ALT 17 Alkaline Phosphatase 69 Troponin I 0.306 H* 0.354 H* C-Reactive Prot, Quant 4.4 H B-Natriuretic Peptide 125 H Total Protein 6.9 Albumin 4.3 Globulin 2.6 Albumin/Globulin Ratio 1.7 Procalcitonin 3.66 H Ur Collection Type Voided Urine Color Lt-Yellow Urine Clarity Clear Urine pH 6.0 Ur Specific [place] 1.007 Urine Protein Negative Urine Glucose (UA) Negative Urine Ketones Negative Urine Blood 1+ A Urine Nitrite Negative Urine Bilirubin Negative Urine Urobilinogen (Auto) Negative Ur Leukocyte Esterase Positive Urine RBC 2 Urine WBC 19 H Ur Squamous Epith Cells < 1 Urine Bacteria None 03/01/25 03/01/25 03/02/25 18:48 20:18 04:49 WBC 17.9 H D RBC 4.45 L Hgb 15.8 Hct 44.9 MCV 101 H MCH 35.5 H MCHC 35.2 RDW Std Deviation 47.9 H Plt Count 167 Neut % (Auto) 87 H Lymph % (Auto) 5 L [place] % (Auto) 7 Eos % (Auto) 0 Baso % (Auto) 0 Neut # (Auto) 15.6 H Lymph # (Auto) 0.9 L [place] # (Auto) 1.3 H Eos # (Auto) 0.0 Baso # (Auto) 0.0 Immature Gran # (Auto) 0.09 H Absolute Nucleated RBC 0.00 Immature Gran % 1 H Nucleated RBC % 0 ESR PT INR APTT Sodium 141 Potassium 4.4 D Chloride 106 Carbon Dioxide 24.8 Anion Gap 10 BUN 11 Creatinine 1.0 Estim Creat Clear Calc 86.2 eGFR > 60 BUN/Creatinine Ratio 11 L Glucose 114 H Calculated Osmolality 281 Lactic Acid 2.0 Calcium 9.1 Corrected Calcium 9.1 Phosphorus 1.9 L Magnesium 1.5 L Total Bilirubin 1.0 AST 95 H ALT 30 Alkaline Phosphatase 63 Troponin I 0.442 H* 0.409 H* C-Reactive Prot, Quant B-Natriuretic Peptide Total Protein 6.6 Albumin 4.1 Globulin 2.5 Albumin/Globulin Ratio 1.6 Procalcitonin Ur Collection Type Urine Color Urine Clarity Urine pH Ur Specific [place] Urine Protein Urine Glucose (UA) Urine Ketones Urine Blood Urine Nitrite Urine Bilirubin Urine Urobilinogen (Auto) Ur Leukocyte Esterase Urine RBC Urine WBC Ur Squamous Epith Cells Urine Bacteria Quality Measures Quality Measures VTE prophylaxis (heparin) Advance care planning discussed with:: patient Assessment & Plan Assessment Current Active Medications: Generic Name Dose Route Start Last Admin Trade Name Freq PRN Reason Stop Dose Admin Acetaminophen 650 mg 03/01/25 20:33 Acetaminophen 325 Mg Tablet PO 03/31/25 20:32 Q6H PRN PAIN SCALE 1-3 (mild Heparin Sodium (Porcine) 5,000 unit 03/01/25 21:00 03/02/25 08:48 Heparin Sod Inj 5000 Unit/Ml Vial SC 03/15/25 20:59 5,000 unit Q12HR CHANTEL Administration Ceftriaxone Sodium/Dextrose 1 gm in 50 mls @ 100 mls/hr 03/02/25 09:00 03/02/25 08:47 Rocephin/D5w 1gm Iv Premix IV 03/09/25 08:59 100 mls/hr QDAY CHANTEL Administration Lorazepam 1 mg 03/02/25 00:39 Lorazepam 0.5 Mg Tablet PO 03/07/25 00:38 Q4HR PRN CIWA SCORE 7-11 Lorazepam 0.5 mg 03/02/25 00:39 Lorazepam 0.5 Mg Tablet PO 03/07/25 00:38 Q4HR PRN CIWA Score 2-6 Lorazepam 2 mg 03/02/25 00:39 Lorazepam 0.5 Mg Tablet PO 03/07/25 00:38 Q4HR PRN CIWA SCORE 12-15 Ondansetron HCl 4 mg 03/01/25 20:33 03/02/25 08:11 Ondansetron Inj 2 Mg/Ml Inj 2 Ml IVP 03/31/25 20:32 4 mg Q6H PRN Administration NAUSEA OR VOMITING Protocol Sennosides 1 tab 03/01/25 20:33 Senna Tablet PO 03/31/25 20:32 QDAY PRN constipation Protocol Plan Assessment: 69-year-old male with a PMH of GBS and BPH who presents following a syncopal episode and ground-level fall. Patient was admitted for the work-up and management of syncopal episode, sepsis r/o 2/2 unknown source of infection, and DEANA. #Syncope #Hx of unspecified cardiac arrhythmia #Cardiogenic vs. reflex vs. orthostatic etiology Initial presentation: syncopal episode w/ preceding cold sweats but w/o post- ictal state Has had 1 prior episode also w/ antecedent cold sweats that occurred in a setting where he felt stressed Current thought is that syncopal episode is most likely 2/2 orthostatic hypotension (patient endorsed lightheadedness upon standing up) that has been brought about by acute illness and septic picture Due to patient's self-reported history of unspecified cardiac arrhythmia, there is concern for cardiogenic syncope which warrants cardiovascular workup Plan: -Echocardiogram pending -electronic device monitor q4HR -Orthostatic vitals - follow -Neuro check q4HR #Sepsis r/o #Leukocytosis #?UTI Patient mets SIRS criteria (3/4) by the following: Temperature above 100.4 or below 98.6 (100.6), HR>90 (135), WBC above 12 or below 4 (25.1) + possible but unlikely source of infection (possible UTI but not convincing nidus) w/ end organ damage (DEANA, altered mentation/syncope) Evidence for source of infection is finding of high WBC 19/hpf and positive LE on UA as well as urinary bladder wall thickening up to 6 mm on CTAP (suggestive of cystitis), but unlikely to be the true source of sepsis Plan - IV Ceftraixone - Follow blood cx, urine cx #DEANA - prerenal (from vol depletion), resolved Cr 1.4 --> 1.0 with fluid resus - Follow renal function #Elevated troponins 2/2, resolved #Demand ischemia #Lactic acidosis, resolved #Chronic medical problems #Guillain-[place] syndrome #Alcohol use disorder Patient has drank an average of 1-2 shots/day of whiskey for 51 years No overt signs of alcohol withdrawal Plan: -[facility] protocol Hospital Management: Diet: cardiac GI Prophylaxis: none DVT Prophylaxis: heparin CODE STATUS: Full Code Case discussed with my attending Dr. Claire, and senior resident, Dr. Logan Huang MD PGY-1 Attending Provider Attestation/Addendum 69-year-old male patient with history of Guillain-Escobar? syndrome, alcohol use history of unspecified cardiac arrhythmia was admitted for syncopal episode. The patient has possible UTI. He has troponin elevation. Today he is asymptomatic with normal blood pressure denies chest pain no headache no lateralizing signs and symptoms. Further workup pending. I discussed with and supervised the resident physician who took care of this patient. I agree with the assessment and plan as above.
[2025-03-02 11:22] LABS: Magnesium 2.2 mg/dL (1.6-2.6); Phosphorous 1.8 mg/dL (2.4-5.1)
--- NOTE | 2025-03-02 16:15 | PC.SS ---
Patient is alert/oriented. Patient resides with Shelly. Patient is independent with ADLs. No DME. Patient was admitted for sepsis. Patient follows with GI and Urology for o/p services. PCP: Dr. Tomas. Last appointment was a month ago. [facility] Patient plans on returning home with spouse. alt medical decision maker: Shelly,
[2025-03-02] MEDS: [UNRECOGNIZED DRUG - OTHER] PO (17:05)
[2025-03-02] MEDS: DICYCLOMINE 10 MG CAPSULE PO (20:26)
[2025-03-03] VITALS (7 sets, daily range): BP systolic 105–129; BP diastolic 66–90; PULSE 72–98; RESP 17–20; TEMP 36.1–36.7; O2SAT 92–99
[2025-03-03 04:52] LABS: Basophils # (Auto) 0.0 Thou/mm3 (0.0-0.2); Basophils % (Auto) 0 % (0-2.5); Eosinophils # (Auto) 0.0 Thou/mm3 (0.0-0.5); Eosinophils % (Auto) 0 % (0-10); Hematocrit 43.2 % (41.0-53.0); Hemoglobin 15.0 g/dL (13.5-16.0); Immature Granulocytes Auto 0.09 Thou/mm3 (0.00-0.00); Lymphocytes # (Auto) 1.4 Thou/mm3 (1.0-4.8); Lymphocytes % (Auto) 11 % (10-50); Mean Corpuscular HGB Conc 34.7 g/dl (31.0-37.0); Mean Corpuscular Hemoglobin 34.9 pg (25.0-35.0); Mean Corpuscular Volume 101 fL (80-100); Monocytes # (Auto) 1.0 Thou/mm3 (0.0-0.8); Monocytes % (Auto) 9 % (0-12); Neutrophils # (Auto) 9.6 Thou/mm3 (1.8-7.7); Neutrophils % (Auto) 79 % (37-80); Nucleated Red Blood Cell # 0.00 Thou/mm3 (0.00-0.00); Nucleated Red Blood Cell % 0 /100 WBC (0); Platelet Count 150 Thou/mm3 (140-440); RDW Standard Deviation 47.1 fL (35.1-43.9); Red Blood Count 4.30 Miln/mm3 (4.50-5.90); White Blood Count 12.1 Thou/mm3 (3.8-10.6)
[2025-03-03 05:22] LABS: Alanine Aminotransferase 35 U/L (10-49); Albumin, Serum 3.8 gm/dL (3.4-4.8); Anion Gap 10 (7-16); Aspartate Amino Transferase 88 U/L (0-34); BUN/Creatinine Ratio 8 Ratio (12-20); Bilirubin,Total 0.4 mg/dL (0.3-1.2); Blood Urea Nitrogen 8 mg/dL (9-23); Calcium 8.4 mg/dL (8.3-10.6); Carbon Dioxide 23.3 mMol/L (20.0-31.0); Chloride 107 mMol/L (98-107); Creatinine (Component) 1.0 mg/dL (0.6-1.3); Estimated Creatinine Clearance 86.2 mL/min (>60); Glucose 103 mg/dL (74-106); Magnesium 1.8 mg/dL (1.6-2.6); Osmolality,Calculated 277 (275-295); Phosphorous 1.7 mg/dL (2.4-5.1); Potassium 3.5 mMol/L (3.4-5.1); Sodium 140 mMol/L (136-145); Total Protein 6.1 gm/dL (5.7-8.2); eGFR > 60 See Note
[2025-03-03 05:23] LABS: Albumin/Globulin Ratio 1.7 (1.2-2.2); Alkaline Phosphatase 53 U/L (46-116); Calcium (Corrected) 8.6 mg/dL (8.5-10.1); Globulin 2.3 gm/dL (2.3-3.5)
--- NOTE | 2025-03-03 08:10 | EKG_ITS ---
[facility] Test Date: 2025-03-03 Pat Name: JOHNATHAN WHITEHEAD Department: Room: S279A Gender: Male Grade Checker: RAGINI : 1955 Requested By: Mckayla Ford Order Number: [id number] Reading MD: Mckayla Ford Measurements Intervals [place] Rate: 79 P: 79 GA: 176 QRS: 7 QRSD: 77 T: 6 QT: 355 QTc: 408 Interpretive Statements SINUS RHYTHM LOW QRS VOLTAGE IN PRECORDIAL LEADS POSSIBLE ANTERIOR MYOCARDIAL INFARCTION , OF INDETERMINATE AGE Compared to ECG 03/01/2025 15:16:11 Sinus tachycardia no longer present Ventricular premature complex(es) no longer present ST (T wave) deviation no longer present Myocardial infarct finding still present /store/S0/[id number]
[2025-03-03] MEDS: DICYCLOMINE 10 MG CAPSULE PO ×2 (10:01→20:06)
[2025-03-03] MEDS: [UNRECOGNIZED DRUG - OTHER] PO (10:01)
[2025-03-03] MEDS: cefTRIAXone/D5w 1gm IV premix 1 GM/50 ML BAG IV (10:02)
[2025-03-03] MEDS: HEPARIN SOD INJ 5000 UNIT/ML VIAL SC ×2 (10:03→20:06)
[2025-03-03] MEDS: NAPH,KPH MBDB 1 PACKET (1.5 GM) 2 PACKET PO (10:18)
--- NOTE | 2025-03-03 11:27 | ESPR_ITS ---
<Statement entered by Mckayla Ford MD - 03/03/25 20:09> I have reviewed the note and agree with the resident's assessment & plan with exceptions as below. I have personally reviewed labs, imaging, home meds/prior records, examined the patient, formulated and discussed management plan with the IM team. Patient examined bedside today. Patient continues to improve, however we will consult cardiology for further workup of cardiogenic syncope. EKG ordered that does not show atrial fibrillation. Patient does endorse having some cardiac history, however is fully unsure of what he had. Repeat hematology and chemistry in the a.m. Mckayla Ford, PGY-2 Internal Medicine Documentation for date of: 03/03/25 Subjective Subjective Interval history: Patient seen at bedside. No acute overnight events. Patient denies any chest pain, shortness of breath, abdominal pain, nausea, vomiting, dizziness. Exam Vital Signs Temp Pulse Resp BP Pulse Ox O2 Del Method 97.0 F 80 19 122/90 H 92 L Room Air 03/03/25 08:00 03/03/25 08:00 03/03/25 08:00 03/03/25 08:00 03/03/25 08:00 03/03/25 08:00 Narrative Exam General: Alert, no acute distress. Skin: Warm, dry, intact, no obvious rash. Head: Normocephalic, atraumatic. Eye: Normal conjunctiva, PERRL. Throat: Oral mucosa moist. No obvious lesions in oropharynx. Cardiovascular: S1+S2. RRR. no murmur. Respiratory: Tachypneic. Lungs are clear to auscultation, no crackles, no wheezing. Gastrointestinal: Soft, nontender, distendetion from obesity. No guarding or rebound tenderness. Extremities: No edema, no cyanosis, no clubbing. 2+ radial pulse bilaterally, 2+ posterior tibial pulse bilaterally. Neuro: No focal deficits observed. Conversant, moving all extremities. No overt cerebellar signs/incoordination. Psychiatric: Cooperative, appropriate affect. Objective Labs 03/04/25 04:35 03/04/25 04:35 Labs: Laboratory Results - last 24 hr 03/03/25 04:25 WBC 12.1 H D RBC 4.30 L Hgb 15.0 Hct 43.2 MCV 101 H MCH 34.9 MCHC 34.7 RDW Std Deviation 47.1 H Plt Count 150 Neut % (Auto) 79 Lymph % (Auto) 11 [place] % (Auto) 9 Eos % (Auto) 0 Baso % (Auto) 0 Neut # (Auto) 9.6 H Lymph # (Auto) 1.4 [place]ade # (Auto) 1.0 H Eos # (Auto) 0.0 Baso # (Auto) 0.0 Immature Gran # (Auto) 0.09 H Absolute Nucleated RBC 0.00 Immature Gran % 1 H Nucleated RBC % 0 Sodium 140 Potassium 3.5 D Chloride 107 Carbon Dioxide 23.3 Anion Gap 10 BUN 8 L Creatinine 1.0 Estim Creat Clear Calc 86.2 eGFR > 60 BUN/Creatinine Ratio 8 L Glucose 103 Calculated Osmolality 277 Calcium 8.4 Corrected Calcium 8.6 Phosphorus 1.7 L Magnesium 1.8 Total Bilirubin 0.4 D AST 88 H ALT 35 Alkaline Phosphatase 53 Total Protein 6.1 Albumin 3.8 Globulin 2.3 Albumin/Globulin Ratio 1.7 Quality Measures Quality Measures VTE prophylaxis (heparin) Advance care planning discussed with:: patient Assessment & Plan Assessment Current Active Medications: Generic Name Dose Route Start Last Admin Trade Name Freq PRN Reason Stop Dose Admin Acetaminophen 650 mg 03/01/25 20:33 Acetaminophen 325 Mg Tablet PO 03/31/25 20:32 Q6H PRN PAIN SCALE 1-3 (mild Dicyclomine HCl 10 mg 03/02/25 21:00 03/03/25 10:01 Dicyclomine 10 Mg Capsule PO 04/01/25 20:59 10 mg BID CHANTEL Administration Heparin Sodium (Porcine) 5,000 unit 03/01/25 21:00 03/03/25 10:03 Heparin Sod Inj 5000 Unit/Ml Vial SC 03/15/25 20:59 5,000 unit Q12HR CHANTEL Administration Ceftriaxone Sodium/Dextrose 1 gm in 50 mls @ 100 mls/hr 03/02/25 09:00 03/03/25 10:02 Rocephin/D5w 1gm Iv Premix IV 03/09/25 08:59 100 mls/hr QDAY CHANTEL Administration Lorazepam 1 mg 03/02/25 00:39 Lorazepam 0.5 Mg Tablet PO 03/07/25 00:38 Q4HR PRN CIWA SCORE 7-11 Lorazepam 0.5 mg 03/02/25 00:39 03/02/25 17:14 Lorazepam 0.5 Mg Tablet PO 03/07/25 00:38 0.5 mg Q4HR PRN Administration CIWA Score 2-6 Lorazepam 2 mg 03/02/25 00:39 Lorazepam 0.5 Mg Tablet PO 03/07/25 00:38 Q4HR PRN CIWA SCORE 12-15 Ondansetron HCl 4 mg 03/01/25 20:33 03/02/25 08:11 Ondansetron Inj 2 Mg/Ml Inj 2 Ml IVP 03/31/25 20:32 4 mg Q6H PRN Administration NAUSEA OR VOMITING Protocol Sennosides 1 tab 03/01/25 20:33 Senna Tablet PO 03/31/25 20:32 QDAY PRN constipation Protocol Solifenacin 5 mg 03/02/25 15:45 03/03/25 10:01 Solifenacin Succ 5 Mg Tablet (Non-Formulary) PO 04/01/25 15:44 5 mg QDAY CHANTEL Administration Plan Assessment: 69-year-old male with a PMH of GBS and BPH who presents following a syncopal episode and ground-level fall. Patient was admitted for the work-up and management of syncopal episode, sepsis r/o 2/2 unknown source of infection, and DEANA. #Syncope #Hx of unspecified cardiac arrhythmia #Cardiogenic vs. reflex vs. orthostatic etiology Initial presentation: syncopal episode w/ preceding cold sweats but w/o post- ictal state Has had 1 prior episode also w/ antecedent cold sweats that occurred in a setting where he felt stressed Current thought is that syncopal episode is most likely 2/2 orthostatic hypotension (patient endorsed lightheadedness upon standing up) that has been brought about by acute illness and septic picture Due to patient's self-reported history of unspecified cardiac arrhythmia, there is concern for cardiogenic syncope which warrants cardiovascular workup Echocardiogram: Estimated EF at 55-60 %. Grade I diastolic dysfunction. Orthostatic vitals, normal Plan: - Consulted Cardiology, Dr. Ricketts, appreciate recs - Repeat orthostatic vitals - air sampling and monitoring q4HR - Neuro check q4HR #Sepsis r/o #Leukocytosis, improving #?UTI Patient mets SIRS criteria (3/4) by the following: Temperature above 100.4 or below 98.6 (100.6), HR>90 (135), WBC above 12 or below 4 (25.1) + possible but unlikely source of infection (possible UTI but not convincing nidus) w/ end organ damage (DEANA, altered mentation/syncope) Evidence for source of infection is finding of high WBC 19/hpf and positive LE on UA as well as urinary bladder wall thickening up to 6 mm on CTAP (suggestive of cystitis), but unlikely to be the true source of sepsis Urine Cx: >100,000 mixed selina, suggested to repeat Cx Blood Cx - neg Plan - IV Ceftraixone (03/02 - #DEANA - prerenal (from vol depletion), resolved Cr 1.4 --> 1.0 with fluid resus - Follow renal function #Elevated troponins 2/2, resolved #Demand ischemia #Lactic acidosis, resolved #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 Claire, and senior resident, Dr. Logan Huang MD PGY-1 Attending Provider Attestation/Addendum 69-year-old male patient with history of cardiac dysrhythmia was admitted for syncopal episode his described at he got up from the toilet and when she saw him the patient was falling down. He said he fell immediately after he stood up from the toilet. The patient denied chest pain. The patient was referred to cardiology for further evaluation. Patient may need Holter monitoring, loop recorder. Discussed with housestaff.
--- NOTE | 2025-03-03 11:49 | PC.SS ---
follow up note: SS spoke to PT who states patient was independent during eval. No services needed. Patient requesting o/p PT.
--- NOTE | 2025-03-03 14:02 | PC.PT ---
PT eval only. Patient is safe to ambulate to the bathroom xI. Patient is safe to ambulate in the halls with 1 staff. RN made aware.
--- NOTE | 2025-03-03 14:23 | ESCONSULT_ITS ---
<Statement entered by Kong Ricketts MD - 03/06/25 16:02> I personally evaluated examined this patient with PGY 2 Dr. Sudhir melissa patient appears to be doing better now admitted to hospital near syncope syncopal episode also tamsulosin 2 tablets 0.4 mg tablets daily might want to consider reducing to 1 tablet as recommended evaluated patient all that she is recommend consultation reviewed by me patient is well-known to me in the past will require further cardiac workup as an outpatient echocardiogram was performed and is negative. 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 Per patient, he woke up on Saturday morning and went to the bathroom, sat on the toilet seat when he tried to get up he felt dizziness followed by cold sweats and syncopal episode. Patient is unsure whether he had loss of conscious or not. Immediately he started for help and his came who called the EMS. Patient lied on the ground till the EMS came and later he was brought to the hospital. Denies chest pain, shortness of breath, palpitations, orthopnea, PND, recent sick contacts, nausea, vomiting, diarrhea. Endorsed that he had history of constipation and is following with Dr. Grace for that who did colonoscopy and did not show any significant abnormality. ED course: Vitals at the time of admission are significant for pulse rate 135 bpm, temperature 100.6 ?F. Labs are significant for WBC 25.1, BUN 10, creatinine 1.4, lactate 4.8, total bilirubin 1.4, troponin 0.306, BNP 125, procalcitonin 3.66. Urinalysis at the time of admission showed 1+ blood, 2 RBC, 19 WBC with no bacteria. EKG at the time of admission showed normal sinus rhythm with tachycardia, PVC, no ST-T wave changes. Chest x-ray did not show any significant opacities. Head CT is negative for acute hemorrhage, mass effect or midline shift. Chest CT is negative for pulmonary arterial embolism. Abdomen/pelvis CT showed cystitis pattern. Past medical history: Paroxysmal A-fib, urge incontinence, GBS Past surgical history: Hernia repair, Mohs surgery on face, appendectomy, fracture of right hand radius Social history: Drinks 1-2 drinks of alcohol per day, smokes marijuana 1-2 times every day. Denies smoking, other illicit drug abuse cc:: cc: Zack Mcclure MD Review of Systems Review of Systems Systems Reviewed: All systems reviewed, normal except as documented Past Medical History Past Medical History NEUROLOGIC: Positive Neurological Disorders (RESTLESS LEG SYNDROME) and Guillain-[place] Syndrome (AT AGE 18); Negative Seizures CARDIAC: Negative Cardiac Disorders or Congestive Heart Failure RESPIRATORY: Negative Chronic Obstructive Pulmonary Disease (COPD) or Asthma GASTROINTESTINAL: Positive Gastrointestinal Disorders (RECTAL BLEEDING) GENITOURINARY: Positive Genitourinary Disorders (OVERACTIVE BLADDER) and Benign Prostatic Hyperplasia; Negative Renal Disease REPRODUCTIVE: Positive Genital Herpes (years ago) MUSCULOSKELETAL: Positive Musculoskeletal Disorders and Fractures ENT: Positive Cataracts (carlitos) ENDOCRINE: Negative Endocrine Disorders, Diabetes Mellitus Type 1 or Diabetes Mellitus Type 2 HEMATOLOGIC: Negative Blood Disorders or Sickle Cell Disease OTHER HISTORY: Positive Hospitalization (guillian barre syndrome), Autoimmune Disease (restless leg syndrome, guillian barre syndrome), Chicken Pox, Measles and Mumps; Negative Blood Transfusions, Blood Transfusion Reaction, Anesthesia Reactions, MRSA or Cancer Family History FAMILY HISTORY: Positive Family Cancer and Family Surgery; Negative Family Psychiatric Problems, Family Respiratory Disorders, Family Cardiac Disorders, Family Gastrointestinal Problems or Family Anesthesia Reaction Social History SMOKING STATUS: Never smoker ALCOHOL LAST INTAKE: Days (ago) Exam Vital Signs Temp Pulse Resp BP Pulse Ox O2 Del Method 97.2 F 97 20 112/83 98 Room Air 03/03/25 12:03/03/25 12:03/03/25 12:03/03/25 12:03/03/25 12:03/03/25 12:00 Narrative Exam General: Awake. HEENT: Normocephalic, atraumatic, mucous membranes moist. Heart: Regular rate and rhythm, no murmurs. Lungs: Clear to auscultation with no wheezing or crackles. Abdomen: Soft, nondistended, nontender, positive bowel sounds. ?No guarding or rebound tenderness. Neurologic: Alert and oriented x3, no gross neurological deficit, and patient able to move all 4 extremities. Extremities: No edema. Skin: No rash or ecchymoses. Results Labs 03/04/25 04:35 03/04/25 04:35 Labs: Short CBC 03/03/25 Range/Units 04:25 WBC 12.1 H D (3.8-10.6) Thou/mm3 Hgb 15.0 (13.5-16.0) g/dL Hct 43.2 (41.0-53.0) % Plt Count 150 (140-440) Thou/mm3 BMP 03/03/25 04:25 Sodium 140 Potassium 3.5 D Chloride 107 Carbon Dioxide 23.3 BUN 8 L Creatinine 1.0 Glucose 103 Calcium 8.4 Liver Function 03/03/25 Range/Units 04:25 Total Bilirubin 0.4 D (0.3-1.2) mg/dL AST 88 H (0-34) U/L ALT 35 (10-49) U/L Alkaline Phosphatase 53 (46-116) U/L Albumin 3.8 (3.4-4.8) gm/dL Quality Measures Quality Measures VTE prophylaxis (heparin) Advance care planning discussed with:: patient Medications Home Medications and Allergies Home Medications ?Medication ?Instructions ?Recorded ?Confirmed ?Type solifenacin 5 mg tablet (Vesicare) 5 mg PO QDAY 03/02/25 History dicyclomine 10 mg capsule 10 mg PO BID 03/02/25 History Allergies Allergy/AdvReac Type Severity Reaction Status Date / Time No Known Allergies Allergy Verified 08/18/24 09:41 Visit Medications Acetaminophen (Acetaminophen 325 Mg Tablet) 650 mg PO Q6H PRN PRN Reason: PAIN SCALE 1-3 (mild Stop: 03/31/25 20:32 Dicyclomine HCl (Dicyclomine 10 Mg Capsule) 10 mg PO BID CHANTEL Stop: 04/01/25 20:59 Last Admin: 03/03/25 10:01 Dose: 10 mg Heparin Sodium (Porcine) (Heparin Sod Inj 5000 Unit/Ml Vial) 5,000 unit SC Q12HR CHANTEL Stop: 03/15/25 20:59 Last Admin: 03/03/25 10:03 Dose: 5,000 unit Ceftriaxone Sodium/Dextrose (Rocephin/D5w 1gm Iv Premix) 1 gm in 50 mls @ 100 mls/hr IV QDAY CHANTEL Stop: 03/09/25 08:59 Last Admin: 03/03/25 10:02 Dose: 100 mls/hr Lorazepam (Lorazepam 0.5 Mg Tablet) 1 mg PO Q4HR PRN PRN Reason: CIWA SCORE 7-11 Stop: 03/07/25 00:38 Lorazepam (Lorazepam 0.5 Mg Tablet) 0.5 mg PO Q4HR PRN PRN Reason: CIWA Score 2-6 Stop: 03/07/25 00:38 Last Admin: 03/02/25 17:14 Dose: 0.5 mg Lorazepam (Lorazepam 0.5 Mg Tablet) 2 mg PO Q4HR PRN PRN Reason: CIWA SCORE 12-15 Stop: 03/07/25 00:38 Ondansetron HCl (Ondansetron Inj 2 Mg/Ml Inj 2 Ml) 4 mg IVP Q6H PRN; Protocol PRN Reason: NAUSEA OR VOMITING Stop: 03/31/25 20:32 Last Admin: 03/02/25 08:11 Dose: 4 mg Sennosides (Senna Tablet) 1 tab PO QDAY PRN; Protocol PRN Reason: constipation Stop: 03/31/25 20:32 Solifenacin (Solifenacin Succ 5 Mg Tablet (Non-Formulary)) 5 mg PO QDAY [facility] Stop: 04/01/25 15:44 Last Admin: 03/03/25 10:01 Dose: 5 mg Discontinued Medications Acetaminophen (Acetaminophen 500 Mg Tablet) 1,000 mg PO X1 ONE Stop: 03/01/25 15:46 Last Admin: 03/01/25 18:06 Dose: 1,000 mg Sodium Chloride (Ns) 2,328 mls @ 2,328 mls/hr 30 ml/kg infuse over 60 min (2328 ml) IV .Q1H ONE Stop: 03/01/25 16:20 Last Infusion: 03/01/25 16:35 Dose: Infused Ceftriaxone Sodium 2 gm/ (Sodium Chloride) 50 mls @ 100 mls/hr IV X1 ONE Stop: 03/01/25 15:51 Last Infusion: 03/01/25 18:45 Dose: Infused Magnesium Sulfate (Magnesium Sulfate Ivpb) 4 gm in 50 mls @ 12.5 mls/hr IV X1 ONE Stop: 03/02/25 08:17 Last Infusion: 03/02/25 20:27 Dose: Infused Potassium Phos/Sodium Phos (Naph,[facility] 1 Packet (1.5 Gm)) 1 packet PO X1 ONE Stop: 03/02/25 07:01 Last Admin: 03/02/25 06:13 Dose: 1 packet Potassium Phos/Sodium Phos (Naph,[facility] 1 Packet (1.5 Gm)) 2 packet PO X1 ONE Stop: 03/03/25 07:09 Last Admin: 03/03/25 10:18 Dose: 2 packet Assessment & Plan Plan A 69-year-old male with significant past medical history of urge incontinence, 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 # Syncope # Fall # Orthostatic hypotension - Likely multifactorial, Reflex syncope, DEANA, Sepsis - Presented to the hospital with chief complaints of syncopal episode followed by a fall. - Per patient, he woke up on Saturday morning and went to the bathroom, sat on the toilet seat when he tried to get up he felt dizziness followed by cold sweats and syncopal episode. - Patient is unsure whether he had loss of conscious or not. Immediately he started for help and his came who called the EMS. - Denies chest pain, shortness of breath, palpitations, orthopnea, PND, recent sick contacts, nausea, vomiting, diarrhea. - Vitals at the time of admission are significant for pulse rate 135 bpm, temperature 100.6 ?F. - Labs are significant for WBC 25.1, BUN 10, creatinine 1.4, lactate 4.8, total bilirubin 1.4, troponin 0.306, BNP 125, procalcitonin 3.66. - Urinalysis at the time of admission showed 1+ blood, 2 RBC, 19 WBC with no bacteria. - EKG at the time of admission showed normal sinus rhythm with tachycardia, PVC, no ST-T wave changes. - Head CT is negative for acute hemorrhage, mass effect or midline shift. Chest CT is negative for pulmonary arterial embolism. Abdomen/pelvis CT showed cystitis pattern. - Orthostatic vitals done on 03/01 and 03/03 showed SBP >20 mm Hg and DBP >10 mm Hg on postural change Plan - Echo showed on - Normal LV size and wall thickness. Estimated EF at 55-60 %. Grade I diastolic dysfunction. The RV size is moderately increased with normal systolic function. Trace MR. IVC not well visualized. - Recommended adequate salt intake and fluid intake - RecoRecommended to practice physical countermaneuvers like standing up slowslowly , leg crosscrossing , buttock clenchclenching - Avod frequent straining and limited exposure to hot environment - Wear an abdominal binder. wear waist high compression stockings providing at least 15 - 20 mm hg - Recommended to take tamsulosin only once a day instead of twice if the urinary incontinence is in control - Treat underlying systemic infection - Follow up in the cardiology clinic on discharge #Elevated troponins 2/2, resolved - Found to elevated troponins at the time of presentation - But later downtrended and EKG did not show any signs of ischemia - Likely in the setting of acute illness #Syncope #Hx of unspecified cardiac arrhythmia #Cardiogenic vs. reflex vs. orthostatic etiology #Sepsis r/o #Leukocytosis, improving #?UTI #DEANA - prerenal (from vol depletion), resolved #Lactic acidosis, resolved #Guillain-[place] syndrome #Alcohol use disorder - Rest of the medical conditions to be treated as per primary team Thank you for allowing us to involve in the care of the patient Patient plan of care was discussed with the retail service technician, Dr. Jamarcus Melissa, PGY2
[2025-03-04] VITALS: BP 120/88; PULSE 92; RESP 17; TEMP 36.8; O2SAT 97
[2025-03-04 04:00] VITALS: BP 111/76; PULSE 73; PULSE 74; RESP 18; TEMP 36.4; O2SAT 98
[2025-03-04 05:01] LABS: Basophils # (Auto) 0.0 Thou/mm3 (0.0-0.2); Basophils % (Auto) 0 % (0-2.5); Eosinophils # (Auto) 0.1 Thou/mm3 (0.0-0.5); Eosinophils % (Auto) 1 % (0-10); Hematocrit 44.1 % (41.0-53.0); Hemoglobin 15.7 g/dL (13.5-16.0); Immature Granulocytes Auto 0.04 Thou/mm3 (0.00-0.00); Lymphocytes # (Auto) 2.0 Thou/mm3 (1.0-4.8); Lymphocytes % (Auto) 23 % (10-50); Mean Corpuscular HGB Conc 35.6 g/dl (31.0-37.0); Mean Corpuscular Hemoglobin 35.4 pg (25.0-35.0); Mean Corpuscular Volume 100 fL (80-100); Monocytes # (Auto) 0.8 Thou/mm3 (0.0-0.8); Monocytes % (Auto) 9 % (0-12); Neutrophils # (Auto) 5.5 Thou/mm3 (1.8-7.7); Neutrophils % (Auto) 66 % (37-80); Nucleated Red Blood Cell # 0.00 Thou/mm3 (0.00-0.00); Nucleated Red Blood Cell % 0 /100 WBC (0); Platelet Count 183 Thou/mm3 (140-440); RDW Standard Deviation 46.4 fL (35.1-43.9); Red Blood Count 4.43 Miln/mm3 (4.50-5.90); White Blood Count 8.4 Thou/mm3 (3.8-10.6)
[2025-03-04 05:41] LABS: Alanine Aminotransferase 37 U/L (10-49); Albumin, Serum 3.9 gm/dL (3.4-4.8); Albumin/Globulin Ratio 1.6 (1.2-2.2); Alkaline Phosphatase 55 U/L (46-116); Anion Gap 6 (7-16); Aspartate Amino Transferase 69 U/L (0-34); BUN/Creatinine Ratio 8 Ratio (12-20); Bilirubin,Total 0.5 mg/dL (0.3-1.2); Blood Urea Nitrogen 8 mg/dL (9-23); Calcium 8.9 mg/dL (8.3-10.6); Calcium (Corrected) 9.0 mg/dL (8.5-10.1); Carbon Dioxide 26.8 mMol/L (20.0-31.0); Chloride 107 mMol/L (98-107); Creatinine (Component) 1.0 mg/dL (0.6-1.3); Estimated Creatinine Clearance 85.5 mL/min (>60); Globulin 2.4 gm/dL (2.3-3.5); Glucose 98 mg/dL (74-106); Magnesium 1.7 mg/dL (1.6-2.6); Osmolality,Calculated 277 (275-295); Phosphorous 2.2 mg/dL (2.4-5.1); Potassium 4.7 mMol/L (3.4-5.1); Sodium 140 mMol/L (136-145); Total Protein 6.3 gm/dL (5.7-8.2); eGFR > 60 See Note
[2025-03-04 06:00] VITALS: BMI 30.5
[2025-03-04 08:00] VITALS: BP 108/85; PULSE 69; RESP 12; TEMP 36.2; O2SAT 97
[2025-03-04] MEDS: HEPARIN SOD INJ 5000 UNIT/ML VIAL SC (09:35)
[2025-03-04] MEDS: cefTRIAXone/D5w 1gm IV premix 1 GM/50 ML BAG IV (09:35)
[2025-03-04] MEDS: DICYCLOMINE 10 MG CAPSULE PO (09:35)
[2025-03-04 10:00] VITALS: PULSE 76
[2025-03-04] MEDS: NAPH,KPH MBDB 1 PACKET (1.5 GM) PO (10:00)
--- NOTE | 2025-03-04 10:02 | PC.NURSE ---
PHARMACY WAS NOTIFIED THAT PT NEEDS VESICARE MEDICATION. PHARMACY WILL BE BRINGING MED UP.
[2025-03-04] MEDS: [UNRECOGNIZED DRUG - OTHER] PO (10:31)
[2025-03-04 12:00] VITALS: BP 108/85; PULSE 69; RESP 12; TEMP 36.2; O2SAT 97
--- NOTE | 2025-03-04 13:39 | ESDS_ITS ---
<Statement entered by Mckayla Ford MD - 03/04/25 15:47> I have reviewed the note and agree with the resident's assessment & plan with exceptions as below. I have personally reviewed labs, imaging, home meds/prior records, examined the patient, formulated and discussed management plan with the IM team. Patient examined at bedside today. Patient reports he is ready to go home, patient did have orthostatic vitals repeated in which they were positive with diastolic and systolic pressures patient instructed on orthostatic hypotension and how to prevent it including compression socks things and avoiding straining with using the restroom and also getting up slowly. These recommendations were listed in the discharge instructions. Patient to also follow-up with cardiology outpatient as well with information including discharge instructions. Patient's Flomax dose will be reduced from twice a day to once a day. Mckayla Ford, PGY-2 Internal Medicine Planned Discharge Date 03/04/25 DS: Providers Provider Date of admission: 03/01/25 20:33 Primary care physician: Physician No Primary/Family Admitting Provider: Zack Mcclure MD Attending Provider on Admission: Charly Claire MD Consults: 03/03/25 08:10 Referral Physical Therapy Routine Comment: Physician Instructions: 03/03/25 10:27 Consult to Cardiology Routine Comment: syncope Consulting Provider: Kong Ricketts Attending Provider on DC: Charly Claire MD Discharging Provider: Charly Claire MD DS: Diagnosis Problem List Completed Was Problem List Reviewed/Reconciled?: Yes Hospital Course Hospital Course Hospital course: 69-year-old male with a PMH of GBS and BPH who presents following a syncopal episode and ground-level fall. Patient was admitted for the work-up and management of syncopal episode, sepsis r/o, and DEANA. In the ED, vitals showed: BP 117/76 HR 135 RR 20 Temp 100.6 SpO2 96% on room air. CBC showed leukocytosis (WBC 25.1) w/ neutrophilic predominance but was otherwise unremarkable. CMP showed elevated creatinine 1.4 (baseline 1.1), critically high lactic acid 4.8, low magnesium and phosphorus, critically high troponin (0.306->0.354->0.442), high CRP, high BNP, and high procalcitonin. UA showed some pyuria, slight hematuria, and positive LE. During admission urine Cx positive for mixed selina, patient received 3 days of ceftriaxone. Patient's DEANA improved with hydration. Consulted cardiology for further workup of cardiogenic syncope. Echo done on 03/01/2025 showed normal ejection fraction, grade 1 diastolic dysfunction. At this time, syncopal episode attributed to orthostatic hypotension. Orthostatic vitals repeated in which they were positive with diastolic and systolic pressures, patient instructed on orthostatic hypotension and how to prevent it including compression socks things and avoiding straining with using the restroom and also getting up slowly. At time of discharge patient is stable. Patient is to follow-up with cardiology within 1 to 2 weeks of discharge. Discharge Instructions: Follow up with your PCP within one week of discharge Follow up with your child care center assistant director, Dr. Rciketts upon d/c within one to two weeks I have decreased your Flomax to once a day rather than twice a day Ensure that you get out of beds, chairs and when standing up to take your time when you get up as you tested positive for orthostatic hypotension while you were admitted Recommended to practice physical counter maneuvers like standing up slow slowly , leg cross crossing , buttock clenching Avoid frequent straining and limited exposure to hot environment Wear an abdominal binder. wear waist high compression stockings providing at least 15 - 20 mm hg Return to ER if your symptoms worsen or return Admission diagnoses: #Syncope 2/2 orthostatic #Sepsis ruled out #Leukocytosis, resolved #UTI, mixed selina #DEANA - prerenal, resolved #Elevated troponins 2/2 to demand ischemia, resolved #Lactic acidosis, resolved #Hx of unspecified cardiac arrhythmia #Hx of Guillain-[place] syndrome #hx of Alcohol use disorder Case discussed with my attending Dr. Claire, and senior resident, Dr. Logan Huang MD PGY-1 Time Spent with Patient Time attestation: Total time spent providing and/or coordinating discharge services: Time spent: Greater than 30 minutes Exam Vital Signs Temp Pulse Resp BP Pulse Ox O2 Del Method 97.2 F 76 12 108/85 H 97 Room Air 03/04/25 08:00 03/04/25 10:00 03/04/25 08:00 03/04/25 08:00 03/04/25 08:00 03/04/25 08:00 Narrative Exam General: Alert, no acute distress. Skin: Warm, dry, intact, no obvious rash. Head: Normocephalic, atraumatic. Eye: Normal conjunctiva, PERRL. Throat: Oral mucosa moist. No obvious lesions in oropharynx. Cardiovascular: S1+S2. RRR. no murmur. Respiratory: Tachypneic. Lungs are clear to auscultation, no crackles, no wheezing. Gastrointestinal: Soft, nontender, distendetion from obesity. No guarding or rebound tenderness. Extremities: No edema, no cyanosis, no clubbing. 2+ radial pulse bilaterally, 2+ posterior tibial pulse bilaterally. Neuro: No focal deficits observed. Conversant, moving all extremities. No overt cerebellar signs/incoordination. Psychiatric: Cooperative, appropriate affect. Discharge Plan Plan Patient Disposition: HOME (Self Care) Patient condition on transfer: Stable Care Plan Goals: Discharge Instructions: Follow up with your PCP within one week of discharge Follow up with your child care center assistant director, Dr. Ricketts upon d/c within one to two weeks I have decreased your Flomax to once a day rather than twice a day Ensure that you get out of beds, chairs and when standing up to take your time when you get up as you tested positive for orthostatic hypotension while you were admitted Recommended to practice physical counter maneuvers like standing up slow slowly , leg cross crossing , buttock clenching Avoid frequent straining and limited exposure to hot environment Wear an abdominal binder. wear waist high compression stockings providing at least 15 - 20 mm hg Return to ER if your symptoms worsen or return Prescriptions/Referrals Prescriptions/Med Rec: New tamsulosin [Flomax] 0.4 mg capsule 0.4 mg PO .qhs 30 Days Qty: 30 0RF Rx Instructions: Take one tablet by mouth at bedtime Continued solifenacin [Vesicare] 5 mg tablet 5 mg PO QDAY dicyclomine 10 mg capsule 10 mg PO BID Patient Comments: per patient for lazy colon Discontinued tamsulosin 0.4 mg capsule 0.4 mg PO BID pramipexole 0.5 mg Tablet 1 mg PO QPM Rx Instructions: administer 2 - 3 hours before bedtime Referrals: No Primary/Family,Physician [Primary Care Provider] - Kong Ricketts MD [Physician] - Patient/Caregiver Discharge Instructions Discharge Activity: activity as tolerated Education Materials: Diagnosing Syncope, Orthostatic Hypotension Print Language: Romanian Stand Alone Forms: Corinne Award Info., Patient Portal Info Letter Discharge Order Discharge Orders: Discharge (Routine); Ordered 03/04/25 Ordered By: Mckayla Ford Quality Discharge Quality Measures VTE prophylaxis MD Attestestation MD Attestation I discussed with and supervised the resident physician who took care of this patient. I agree with the assessment and discharge discharge plan as above.
[2025-03-04 13:57] VITALS: PULSE 76
--- NOTE | 2025-03-04 14:00 | ESPR_ITS ---
<Statement entered by Kong Ricketts MD - 03/06/25 16:02> I personally evaluated this patient examined with the resident physician Dr. Sudhir Murrieta patient appears to be doing better now not having chest pain shortness but no syncope patient can be discharged home patient will have cardiac workup as an outpatient my office cardiac echo is already normal recommended reduce the dose of tamsulosin for now hydrate well Documentation for date of: 03/04/25 Subjective Subjective Interval history: Patient is seen and examined at the bedside. Denies any complaints. No acute overnight events - Echo showed on - Normal LV size and wall thickness. Estimated EF at 55-60 %. Grade I diastolic dysfunction. The RV size is moderately increased with normal systolic function. Trace MR. IVC not well visualized. - Recommended adequate salt intake and fluid intake - RecoRecommended to practice physical countermaneuvers like standing up slowslowly , leg crosscrossing , buttock clenchclenching - Avod frequent straining and limited exposure to hot environment - Wear an abdominal binder. wear waist high compression stockings providing at least 15 - 20 mm hg - Recommended to take tamsulosin only once a day instead of twice if the urinary incontinence is in control - Treat underlying systemic infection - Follow up in the cardiology clinic on discharge Exam Vital Signs Temp Pulse Resp BP Pulse Ox O2 Del Method 97.2 F 76 12 108/85 H 97 Room Air 03/04/25 12:00 03/04/25 13:57 03/04/25 12:00 03/04/25 12:00 03/04/25 12:00 03/04/25 12:00 Narrative Exam General: Awake. HEENT: Normocephalic, atraumatic, mucous membranes moist. Heart: Regular rate and rhythm, no murmurs. Lungs: Clear to auscultation with no wheezing or crackles. Abdomen: Soft, nondistended, nontender, positive bowel sounds. ?No guarding or rebound tenderness. Neurologic: Alert and oriented x3, no gross neurological deficit, and patient able to move all 4 extremities. Extremities: No edema. Skin: No rash or ecchymoses. Objective Labs 03/04/25 04:35 03/04/25 04:35 Labs: Laboratory Results - last 24 hr 03/04/25 04:35 WBC 8.4 RBC 4.43 L Hgb 15.7 Hct 44.1 MCV 100 MCH 35.4 H MCHC 35.6 RDW Std Deviation 46.4 H Plt Count 183 D Neut % (Auto) 66 Lymph % (Auto) 23 Chambers % (Auto) 9 Eos % (Auto) 1 Baso % (Auto) 0 Neut # (Auto) 5.5 Lymph # (Auto) 2.0 Chambers # (Auto) 0.8 Eos # (Auto) 0.1 Baso # (Auto) 0.0 Immature Gran # (Auto) 0.04 H Absolute Nucleated RBC 0.00 Immature Gran % 1 H Nucleated RBC % 0 Sodium 140 Potassium 4.7 D Chloride 107 Carbon Dioxide 26.8 Anion Gap 6 L BUN 8 L Creatinine 1.0 Estim Creat Clear Calc 85.5 eGFR > 60 BUN/Creatinine Ratio 8 L Glucose 98 Calculated Osmolality 277 Calcium 8.9 Corrected Calcium 9.0 Phosphorus 2.2 L Magnesium 1.7 Total Bilirubin 0.5 AST 69 H ALT 37 Alkaline Phosphatase 55 Total Protein 6.3 Albumin 3.9 Globulin 2.4 Albumin/Globulin Ratio 1.6 Quality Measures Quality Measures VTE prophylaxis Advance care planning discussed with:: patient Assessment & Plan Plan A 69-year-old male with significant past medical history of urge incontinence, 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 # Syncope # Fall # Orthostatic hypotension - Likely multifactorial, Reflex syncope, DEANA, Sepsis - Presented to the hospital with chief complaints of syncopal episode followed by a fall. - Per patient, he woke up on Saturday morning and went to the bathroom, sat on the toilet seat when he tried to get up he felt dizziness followed by cold sweats and syncopal episode. - Patient is unsure whether he had loss of conscious or not. Immediately he started for help and his came who called the EMS. - Denies chest pain, shortness of breath, palpitations, orthopnea, PND, recent sick contacts, nausea, vomiting, diarrhea. - Vitals at the time of admission are significant for pulse rate 135 bpm, temperature 100.6 ?F. - Labs are significant for WBC 25.1, BUN 10, creatinine 1.4, lactate 4.8, total bilirubin 1.4, troponin 0.306, BNP 125, procalcitonin 3.66. - Urinalysis at the time of admission showed 1+ blood, 2 RBC, 19 WBC with no bacteria. - EKG at the time of admission showed normal sinus rhythm with tachycardia, PVC, no ST-T wave changes. - Head CT is negative for acute hemorrhage, mass effect or midline shift. Chest CT is negative for pulmonary arterial embolism. Abdomen/pelvis CT showed cystitis pattern. - Orthostatic vitals done on 03/01 and 03/03 showed SBP >20 mm Hg and DBP >10 mm Hg on postural change Plan - Echo showed on - Normal LV size and wall thickness. Estimated EF at 55-60 %. Grade I diastolic dysfunction. The RV size is moderately increased with normal systolic function. Trace MR. IVC not well visualized. - Recommended adequate salt intake and fluid intake - RecoRecommended to practice physical countermaneuvers like standing up slowslowly , leg crosscrossing , buttock clenchclenching - Avod frequent straining and limited exposure to hot environment - Wear an abdominal binder. wear waist high compression stockings providing at least 15 - 20 mm hg - Recommended to take tamsulosin only once a day instead of twice if the urinary incontinence is in control - Treat underlying systemic infection - Follow up in the cardiology clinic on discharge #Elevated troponins 2/2, resolved - Found to elevated troponins at the time of presentation - But later downtrended and EKG did not show any signs of ischemia - Likely in the setting of acute illness #Syncope #Hx of unspecified cardiac arrhythmia #Cardiogenic vs. reflex vs. orthostatic etiology #Sepsis r/o #Leukocytosis, improving #?UTI #DEANA - prerenal (from vol depletion), resolved #Lactic acidosis, resolved #Guillain-[place] syndrome #Alcohol use disorder - Rest of the medical conditions to be treated as per primary team Thank you for allowing us to involve in the care of the patient Patient plan of care was discussed with the grape pruner, Dr. Jamarcus Murrieta, PGY2
== END 2025-03-04 14:13 | disposition home or self-care (01) | DRG 312 ==
LOC: SERX 20:01 → SERHOLD 21:00 → S2NX 23:26 → S3NX 03-04 03:17
PROVIDERS: Physician Assistant Medical; Admitting Provider Internal Medicine; Emergency Provider Emergency Medicine; Visit Provider Internal Medicine
DX: I95.1 Orthostatic hypotension (principal); G61.0 Guillain-Barre syndrome; N17.9 Acute kidney failure, unspecified; I24.89 Other forms of acute ischemic heart disease; E87.20 Acidosis, unspecified; N40.0 Benign prostatic hyperplasia without lower urinary tract symptoms; I49.3 Ventricular premature depolarization; E86.9 Volume depletion, unspecified; K59.00 Constipation, unspecified; I48.0 Paroxysmal atrial fibrillation; F10.10 Alcohol abuse, uncomplicated; W19.XXXA Unspecified fall, initial encounter; Y92.002 Bathroom of unspecified non-institutional (private) residence as the place of occurrence of the external cause
CPT/HCPCS: 36415; 70450; 71045; 71275; 74177; 80053; 81001; 83605; 83735; 83880; 84100; 84145; 84484; 85025; 85610; 85652; 85730; 86140; 87040; 87086; 87811; 93005; 93306; 96361; 96365; 96375; 97162; A4649; J0696; J1644; J2405; J3475; J7030; J7050; Q9967; A9270

== ENCOUNTER → 2025-07-09 | Outpatient (BNVA) | payer MEDICARE, BC, SELFPAY | END | disposition home or self-care (01) | PROVIDERS: PCP Nurse Anesthetist, Certified Registered; Referring Provider Nurse Anesthetist, Certified Registered; Visit Provider Urology | DX: N40.1 Benign prostatic hyperplasia with lower urinary tract symptoms (principal); N13.8 Other obstructive and reflux uropathy; N32.81 Overactive bladder; Z87.440 Personal history of urinary (tract) infections; Z80.42 Family history of malignant neoplasm of prostate | CPT/HCPCS: 81003; 99212; G0463 ==